=== PATIENT | male | born 1985 | race Caucasian/White ===

== ENCOUNTER 2017-07-25 01:44 | Emergency (ER) | payer BC, OTHER ==
[2017-07-25] MEDS ORDERED: Pantoprazole 40 MG Tab.CR PO STA (02:19)
--- NOTE | 2017-07-25 02:22 | EDM.PDOC ---
ED HPI GENERAL MEDICAL PROBLEM - General Chief Complaint: Gastrointestinal Problem Stated Complaint: SOB Time Seen by Provider: 07/25/17 01:44 Source of Information: Reports: Patient, Family History Limitations: Reports: No Limitations - History of Present Illness INITIAL COMMENTS - FREE TEXT/NARRATIVE: 31 y.o.w.m with metabolic syndrome, including DM, Morbid obesity and hypertension, came to the ed after he woke up after in joked on some vomited food. He stated he felt an acid taste in his mouth. The symptoms were lasting a sec or so. He is on HNT and DM meds (metformin) however, he does not take his meds since April. right now, he is in his usual state of health. BP 173/89 Pulse 102 RR 20 Pulse ox 98% on RA Temp 37.1 Onset Date: 07/25/17 Onset Time: 00:30 Duration: Hour(s):, Other (one time, subsided [employer]) Location: Reports: Chest Quality: Reports: Ache, Burning Severity: Moderate Improves with: Reports: Other (sitting up) Worsens with: Reports: Eating, Other (in supine position) Context: Reports: Other (eating a heavy meal before bedtime) Associated Symptoms: Reports: Shortness of Breath (for a few seconds) - Related Data Allergies Allergy/AdvReac Type Severity Reaction Status Date / Time cephalexin Allergy Rash Verified 07/25/17 01:55 egg Allergy Cannot Verified 07/25/17 01:55 Remember Home Meds: Home Meds Omeprazole 40 mg PO BEDTIME #30 cap.sr 07/25/17 [Rx] Past Medical History Cardiovascular History: Reports: Hypertension Respiratory History: Reports: Asthma Gastrointestinal History: Reports: GERD, Helicobacter Pylori Musculoskeletal History: Reports: Fracture Other Musculoskeletal History: hx fx hand, fx R foot, Endocrine/Metabolic History: Reports: Diabetes, Type II, Obesity/BMI 30+ - Infectious Disease History Infectious Disease History: Reports: Chicken Pox - Past Surgical History HEENT Surgical History: Reports: Adenoidectomy, Myringotomy w Tube(s), Oral Surgery, Tonsillectomy GI Surgical History: Reports: EGD Endocrine Surgical History: Reports: None Musculoskeletal Surgical History: Reports: None Social & Family History - Family History Family Medical History: Noncontributory - Tobacco Use Smoking Status *Q: Never Smoker - Caffeine Use Caffeine Use: Reports: Coffee, Soda - Recreational Drug Use Recreational Drug Use: No ED ROS GENERAL - Review of Systems Review Of Systems: See Below Constitutional: Reports: No Symptoms HEENT: Reports: No Symptoms Respiratory: Reports: No Symptoms Cardiovascular: Reports: No Symptoms Endocrine: Reports: No Symptoms GI/Abdominal: Reports: Other (gastric reflux) : Reports: No Symptoms Musculoskeletal: Reports: No Symptoms Skin: Reports: No Symptoms Neurological: Reports: No Symptoms Psychiatric: Reports: No Symptoms Hematologic/Lymphatic: Reports: No Symptoms Immunologic: Reports: No Symptoms ED EXAM, GI/ABD - Physical Exam Exam: See Below Exam Limited By: No Limitations General Appearance: Alert, WD/WN, Mild Distress Eyes: Bilateral: Normal Appearance, EOMI Ears: Normal External Exam Nose: Normal Inspection Throat/Mouth: Normal Inspection Head: Atraumatic, Normocephalic Neck: Normal Inspection, Supple, Non-Tender, Full Range of Motion Respiratory/Chest: No Respiratory Distress, Lungs Clear, Normal Breath Sounds, No Accessory Muscle Use, Chest Non-Tender Cardiovascular: Normal Peripheral Pulses, Regular Rate, Rhythm, No Edema, No Gallop GI/Abdominal Exam: Normal Bowel Sounds, Soft, Non-Tender, No Organomegaly, No Abnormal Bruit, No Mass (Male) Exam: Deferred Rectal (Males) Exam: Deferred Back Exam: Normal Inspection, Full Range of Motion Extremities: Normal Inspection, Normal Range of Motion, Non-Tender, No Pedal Edema, Normal Capillary Refill Neurological: Alert, Oriented, CN II-XII Intact, Normal Cognition, Normal Gait, Normal Reflexes, No Motor/Sensory Deficits Psychiatric: Normal Affect, Normal Mood Skin Exam: Warm, Dry, Intact, Normal Color, No Rash Lymphatic: No Adenopathy EKG INTERPRETATION EKG Date: 07/25/17 Time: 01:55 Rhythm: NSR Rate (Beats/Min): 99 [place]: Normal P-Wave: Present QRS: Normal ST-T: Normal QT: Normal Comparison: NA - No Prior EKG Course - Vital Signs Text/Narrative:: 31 y.o.w.m with metabolic syndrome, including DM, Morbid obesity and hypertension, came to the ed after he woke up after in joked on some vomited food. He stated he felt an acid taste in his mouth. The symptoms were lasting a sec or so. He is on HNT and DM meds (metformin) however, he does not take his meds since April. right now, he is in his usual state of health. BP 173/89 Pulse 102 RR 20 Pulse ox 98% on RA Temp 37.1 PE: Morbid obese 31 y.o.w.m presented with GERD symptoms Labs: Glc 483 (nonfasting) Na 132 K 3.7 Amylase 19 Impression: GERD, H/O NIDDM and HTN, Noncompliance with meds, metabolic syndrome Tx: Protonix, pt refused Metrormin/insulin SQ at this time, stating he has medications at home Reexam: Improved Plan: D/C with instructions Last Recorded V/S: Last Vital Signs Temp 36.7 C 07/25/17 01:44 Pulse 104 H 07/25/17 01:44 Resp 20 07/25/17 01:44 BP 173/99 H 07/25/17 01:44 Pulse Ox 96 07/25/17 01:44 - Orders/Labs/Meds Orders: Active Orders 24 hr Category Date Time Status EKG Documentation Completion [RC] ASDIRECTED Care 07/25/17 02:12 Active GLYCOSYLATED HEMOGLOBIN,HGBA1C [CHEM] Stat Lab 07/25/17 02:48 Ordered EKG 12 Lead [EK] Routine Ther 07/25/17 02:11 Ordered Labs: Laboratory Tests 07/25/17 07/25/17 Range/Units 02:05 02:05 WBC 10.1 (4.5-12.0) X10-3/uL RBC 5.58 (4.30-5.75) x10(6)uL Hgb 16.7 H (11.5-15.5) g/dL Hct 48.1 (30.0-51.3) % MCV 86.2 (80-96) fL MCH 29.9 (27.7-33.6) pg MCHC 34.6 (32.2-35.4) g/dL RDW 12.5 (11.5-15.5) % Plt Count 219 (125-369) X10(3)uL MPV 9.5 (7.4-10.4) fL Neut % (Auto) 67.2 (46-82) % Lymph % (Auto) 22.5 (13-37) % [place] % (Auto) 7.5 (4-12) % Eos % (Auto) 2 (1.0-5.0) % Baso % (Auto) 1 (0-2) % Neut # (Auto) 6.7 (1.6-8.3) # Lymph # (Auto) 2.3 (0.6-5.0) # [place] # (Auto) 0.8 (0.0-1.3) # Eos # (Auto) 0.2 (0.0-0.8) # Baso # (Auto) 0.1 (0.0-0.2) # Sodium 132 L (135-145) mmol/L Potassium 3.7 (3.5-5.3) mmol/L Chloride 97 L (100-110) mmol/L Carbon Dioxide 25 (21-32) mmol/L BUN 14 (7-18) mg/dL Creatinine 1.0 (0.70-1.30) mg/dL Est Cr Clr Drug Dosing 130.20 mL/min Estimated GFR (MDRD) > 60 (>60) BUN/Creatinine Ratio 14.0 (9-20) Glucose 483 H* (80-116) mg/dL Calcium 8.3 L (8.6-10.2) mg/dL Total Bilirubin 0.8 (0.1-1.3) mg/dL Direct Bilirubin < 0.05 L (0.10-0.20) mg/dL AST 16 (5-25) IU/L ALT 30 (12-36) U/L Alkaline Phosphatase 113 H (56-112) IU/L Total Protein 7.0 (6.0-8.0) g/dL Albumin 3.4 L (3.5-5.2) g/dL Amylase 19 L (25-115) U/L Meds: Medications Discontinued Medications Generic Name Dose Route Start Last Admin Trade Name Freq PRN Reason Stop Dose Admin Pantoprazole Sodium 40 mg 07/25/17 02:19 07/25/17 02:25 Protonix PO 07/25/17 02:20 40 mg ONETIME STA Administration Departure - Departure Time of Disposition: 02:52 Disposition: Home, Self-Care 01 Condition: Good Clinical Impression: Noncompliance with medication regimen, HTN (hypertension) GERD (gastroesophageal reflux disease) Qualifiers: Esophagitis presence: esophagitis presence not specified Qualified Code(s): K21.9 - Gastro-esophageal reflux disease without esophagitis Diabetes Qualifiers: Diabetes mellitus type: type 2 - Discharge Information Prescriptions: Omeprazole 40 mg PO BEDTIME #30 cap.sr Instructions: Heartburn, [id number], Pantoprazole tablets Referrals: Norm Toribio MD [Primary Care Provider] - Forms: ED Department Discharge Additional Instructions: Please do not eat anything 3 hours before bedtime, please elevate head 30 degree at night. Please take the Protonix as recommended & take Metformin when you get home. Please follow up in 1-3 days at clinic & have fasting blood sugar rechecked. Please come back if your symptoms get worse acutely. - My Orders Last 24 Hours: My Active Orders 07/25/17 02:11 EKG 12 Lead [EK] Routine 07/25/17 02:12 EKG Documentation Completion [RC] ASDIRECTED 07/25/17 02:48 GLYCOSYLATED HEMOGLOBIN,HGBA1C [CHEM] Stat - Assessment/Plan Last 24 Hours: My Active Orders 07/25/17 02:11 EKG 12 Lead [EK] Routine 07/25/17 02:12 EKG Documentation Completion [RC] ASDIRECTED 07/25/17 02:48 GLYCOSYLATED HEMOGLOBIN,HGBA1C [CHEM] Stat
== END 2017-07-25 02:58 | disposition home or self-care (01) ==
LOC: FB.ED 01:44
DX: K21.9 Gastro-esophageal reflux disease without esophagitis (principal); E11.9 Type 2 diabetes mellitus without complications; I10 Essential (primary) hypertension; Z91.14 Patient's other noncompliance with medication regimen; Z88.1 Allergy status to other antibiotic agents; Z91.012 Allergy to eggs
CPT/HCPCS: 36415; 80048; 80076; 82150; 83036; 85025; 93005; 99284; A9270

== ENCOUNTER 2021-04-04 20:28 | Inpatient (IN) | payer OTHER ==
--- NOTE | 2021-04-04 21:09 | EDM.PDOC ---
ED HPI GENERAL MEDICAL PROBLEM - General Chief Complaint: Lower Extremity Injury/Pain Stated Complaint: FOOT INFECTION Time Seen by Provider: 04/04/21 21:12 Source of Information: Reports: Patient - History of Present Illness INITIAL COMMENTS - FREE TEXT/NARRATIVE: 35-year-old gentleman with a past medical history significant for uncontrolled diabetes mellitus came to the emergency department due to pain and swelling in his right foot. He went to a walk-in clinic approximately 5 days ago and was seen due to some redness in the foot but no significant redness or swelling. He also had some pain behind his leg. Ultrasound was negative for DVT but he did have a small lymph node in his groin. He was not started on antibiotics at that time. However, over the last 2 to 3 days he has had increasing fatigue, fever, pain, and swelling in his foot. He denies chest pain, shortness of breath at this time. - Related Data Allergies Allergy/AdvReac Type Severity Reaction Status Date / Time cephalexin Allergy Rash Verified 04/04/21 20:44 egg Allergy Cannot Verified 04/04/21 20:44 Remember Home Meds: Home Meds Lisinopril/Hydrochlorothiazide [Lisinopril-Hctz 20-25 mg Tab] 1 each PO BEDTIME 04/04/21 [History] Semaglutide [Ozempic] 0.25 mg SQ KRAUS 04/04/21 [History] atorvaSTATin Calcium [Lipitor] 20 mg PO BEDTIME 04/04/21 [History] metFORMIN [Glucophage XR] 500 mg PO BIDMEALS 04/04/21 [History] Past Medical History Cardiovascular History: Reports: Hypertension Respiratory History: Reports: Asthma Gastrointestinal History: Reports: GERD, Helicobacter Pylori Musculoskeletal History: Reports: Fracture Other Musculoskeletal History: hx fx hand, fx R foot, Endocrine/Metabolic History: Reports: Diabetes, Type II, Obesity/BMI 30+ - Infectious Disease History Infectious Disease History: Reports: Chicken Pox - Past Surgical History HEENT Surgical History: Reports: Adenoidectomy, Myringotomy w Tube(s), Oral Surgery, Tonsillectomy GI Surgical History: Reports: EGD Endocrine Surgical History: Reports: None Musculoskeletal Surgical History: Reports: None Social & Family History - Family History Family Medical History: No Pertinent Family History - Caffeine Use Caffeine Use: Reports: Coffee, Soda Review of Systems - Review of Systems Review Of Systems: See Below Constitutional: Reports: Chills, Fever Eyes: Reports: No Symptoms Ears: Reports: No Symptoms Nose: Reports: No Symptoms Mouth/Throat: Reports: No Symptoms Respiratory: Reports: No Symptoms Cardiovascular: Reports: No Symptoms GI/Abdominal: Reports: No Symptoms Genitourinary: Reports: No Symptoms Musculoskeletal: Reports: Foot Pain Skin: Reports: Wound, Other (Significant swelling, erythema, edema with purulent discharge from a wound at the base of the medial aspect of the right great toe) Neurological: Reports: No Symptoms Psychiatric: Reports: No Symptoms ED EXAM, GENERAL - Physical Exam Exam: See Below Free Text/Narrative:: Note that patient's right foot is numb to touch from just inferior to the talus and distally Exam Limited By: No Limitations General Appearance: Alert, Anxious Eye Exam: Bilateral Eye: EOMI Head: Atraumatic, Normocephalic Neck: Normal Inspection Respiratory/Chest: No Respiratory Distress, Lungs Clear Cardiovascular: Regular Rate, Rhythm Peripheral Pulses: 2+: Radial (L), Radial (R), Posterior Tibial (R), Dorsalis Pedis (R) GI/Abdominal: Normal Bowel Sounds, Non-Tender Back Exam: Normal Inspection Extremities: Pedal Edema Neurological: Alert, Oriented, Normal Cognition Psychiatric: Anxious Skin Exam: Other (Significant swelling, erythema, edema, calor, wound with purulent discharge at the base of the medial aspect of the right great toe) Course - Vital Signs Text/Narrative:: Review of the patient's [facility] chart shows that he has had Augmentin in the past without adverse effect. He also shows that he had chronic kidney disease with a creatinine of 1.35 and GFR of 60 on 03/25/2021. His previous A1c was 9.8 on 03/25/2021 and prior to that it was 11.3 on 10/04/2018. Patient started on Zosyn and vancomycin. I attempted transfer to both [facility]/[place] transfer line and to [facility]. They will call in the morning if beds are available. Last Recorded V/S: Last Vital Signs Temp 37.1 C 04/04/21 20:37 Pulse 118 H 04/04/21 20:37 Resp 20 04/04/21 20:37 BP 124/91 H 04/04/21 20:37 Pulse Ox 99 04/04/21 20:37 - Orders/Labs/Meds Orders: Active Orders 24 hr Category Date Time Status Patient Status Manage Transfer [TRANSFER] Routine ADT 04/04/21 23:28 Active Patient Status [ADT] Routine ADT 04/04/21 23:29 Active Accu Check [Blood Glucose Check, Bedside] [RC] Care 04/04/21 23:35 Ordered WITHMEALSANDBED Antiembolic Devices [RC] .Routine Care 04/04/21 23:31 Active Pulse Oximetry [RC] PRN Care 04/04/21 23:29 Active VTE/DVT Education [RC] Click to Edit Care 04/04/21 23:31 Active Vital Signs [RC] Q4H Care 04/04/21 23:29 Active Consistent Carbohydrate Diet [DIET] Diet 04/05/21 Breakfast Ordered CULTURE BLOOD [BC] Urgent Lab 04/04/21 21:07 Received CULTURE BLOOD [BC] Urgent Lab 04/04/21 21:12 Received CULTURE ROUTINE + SMEAR [RM] Stat Lab 04/04/21 20:55 Received Piperacillin/Tazobactam [Zosyn] 3.375 gm Med 04/04/21 22:00 Active Sodium Chloride 0.9% [Normal Saline AdvBag] 50 ml IV Q6H Sodium Chloride 0.9% [Normal Saline] 1,000 ml Med 04/04/21 23:00 Active IV ASDIRECTED VANCOmycin 2 GM/400 ML 2 gm Med 04/04/21 22:30 Active Premix Bag 1 bag IV STAT Vancomycin Med 04/04/21 23:00 Hold 3 gm IV .PHARMACY TO DOSE Blood Culture x2 Reflex Set [OM.PC] Urgent Oth 04/04/21 21:02 Ordered DVT/VTE Prophylaxis Reflex [OM.PC] Per Unit Routine Oth 04/04/21 23:29 Ordered Resuscitation Status Routine Resus Stat 04/04/21 23:29 Ordered Medication Orders Piperacillin Sod/Tazobactam (Sod 3.375 gm/ Sodium Chloride) 50 mls @ 100 mls/hr IV Q6H [facility] Last Admin: 04/04/21 22:04 Dose: 100 mls/hr Documented by: CHARLES Vancomycin HCl 2 gm/ Premix 400 mls @ 200 mls/hr IV STAT ONE Stop: 04/05/21 00:29 Last Admin: 04/04/21 22:43 Dose: 200 mls/hr Documented by: CHARLES Sodium Chloride (Normal Saline) 1,000 mls @ 150 mls/hr IV ASDIRECTED [facility] Vancomycin HCl (Vancomycin 1 Gm Sdv) 3 gm IV .PHARMACY TO DOSE [facility] Labs: Laboratory Tests 04/04/21 04/04/21 04/04/21 Range/Units 21:07 21:07 21:07 WBC 13.5 H (3.2-10.1) x10-3/uL RBC 4.94 (3.90-5.90) x10(6)uL Hgb 14.6 (12.9-17.7) g/dL Hct 42.3 (38.3-50.1) % MCV 85.5 (80.8-98.7) fL MCH 29.5 (27.0-33.3) pg MCHC 34.5 (28.7-35.3) g/dL RDW 13.2 (12.4-15.0) % Plt Count 281 (117-477) x10(3)uL MPV 8.9 (6.7-11.0) fL Neut % (Auto) 66.6 (40.3-71.8) % Lymph % (Auto) 19.4 (15.8-45.3) % [place] % (Auto) 11.1 (5.5-15.2) % Eos % (Auto) 2.2 (0.1-6.8) % Baso % (Auto) 0.7 (0.3-3.8) % Neut # (Auto) 9.0 H (1.7-6.9) x10-3/uL Lymph # (Auto) 2.6 (0.5-4.5) x10-3/uL [place] # (Auto) 1.5 H (0.0-1.2) x10-3/uL Eos # (Auto) 0.3 (0.0-0.6) x10-3/uL Baso # (Auto) 0.1 (0.0-0.3) x10-3/uL Sodium 134 L (135-145) mmol/L Potassium 3.8 (3.5-5.3) mmol/L Chloride 99 L (100-110) mmol/L Carbon Dioxide 27 (21-32) mmol/L BUN 26 H D (7-18) mg/dL Creatinine 1.6 H (0.70-1.30) mg/dL Est Cr Clr Drug Dosing 78.36 mL/min Estimated GFR (MDRD) 49 L (>60) BUN/Creatinine Ratio 16.3 (9-20) Glucose 210 H D (80-116) mg/dL Lactic Acid 1.4 (0.4-2.0) mmol/L Calcium 9.5 (8.6-10.2) mg/dL Total Bilirubin 0.8 (0.1-1.3) mg/dL AST 17 (5-25) IU/L ALT 19 D (12-36) U/L Alkaline Phosphatase 85 (56-112) IU/L Total Protein 7.8 (6.0-8.0) g/dL Albumin 2.9 L (3.5-5.2) g/dL Globulin 4.9 g/dL Albumin/Globulin Ratio 0.6 Meds: Medications Generic Name Dose Route Start Last Admin Trade Name Freq PRN Reason Stop Dose Admin Piperacillin Sod/Tazobactam 50 mls @ 100 mls/hr 04/04/21 22:00 04/04/21 22:04 Sod 3.375 gm/ Sodium Chloride IV 100 mls/hr Q6H MAX Administration Vancomycin HCl 2 gm/ Premix 400 mls @ 200 mls/hr 04/04/21 22:30 04/04/21 22:43 IV 04/05/21 00:29 200 mls/hr STAT ONE Administration Sodium Chloride 1,000 mls @ 150 mls/hr 04/04/21 23:00 Normal Saline IV ASDIRECTED [facility] Vancomycin HCl 3 gm 04/04/21 23:00 Vancomycin 1 Gm Sdv IV .PHARMACY TO DOSE MAX Departure - Departure Time of Disposition: 23:37 Disposition: Refer to Observation Condition: Fair Clinical Impression: Cellulitis and abscess of right lower extremity Diabetes mellitus Qualifiers: Diabetes mellitus type: type 2 - Discharge Information *PRESCRIPTION DRUG MONITORING PROGRAM REVIEWED*: Not Applicable *COPY OF PRESCRIPTION DRUG MONITORING REPORT IN PATIENT LISA: Not Applicable Referrals: PCP,None [Primary Care Provider] - Forms: ED Department Discharge Sepsis Event Note (ED) - Evaluation Sepsis Screening Result: No Definite Risk - Focused Exam Vital Signs: Vital Signs Temp Pulse Resp BP Pulse Ox 04/04/21 20:37 37.1 C 118 H 20 124/91 H 99 - My Orders Last 24 Hours: My Active Orders 04/04/21 20:55 CULTURE ROUTINE + SMEAR [RM] Stat 04/04/21 21:02 Blood Culture x2 Reflex Set [OM.PC] Urgent 04/04/21 21:07 CULTURE BLOOD [BC] Urgent 04/04/21 21:12 CULTURE BLOOD [BC] Urgent 04/04/21 22:00 Piperacillin/Tazobactam [Zosyn] 3.375 gm Sodium Chloride 0.9% [Normal Saline AdvBag] 50 ml IV Q6H 04/04/21 22:30 VANCOmycin 2 GM/400 ML 2 gm Premix Bag 1 bag IV STAT 04/04/21 23:00 Sodium Chloride 0.9% [Normal Saline] 1,000 ml IV ASDIRECTED Vancomycin 3 gm IV .PHARMACY TO DOSE 04/04/21 23:28 Patient Status Manage Transfer [TRANSFER] Routine 04/04/21 23:29 Patient Status [ADT] Routine Pulse Oximetry [RC] PRN Vital Signs [RC] Q4H DVT/VTE Prophylaxis Reflex [OM.PC] Per Unit Routine Resuscitation Status Routine 04/04/21 23:31 Antiembolic Devices [RC] .Routine VTE/DVT Education [RC] Click to Edit 04/04/21 23:35 Accu Check [Blood Glucose Check, Bedside] [RC] WITHMEALSANDBED 04/05/21 Breakfast Consistent Carbohydrate Diet [DIET] - Assessment/Plan Last 24 Hours: My Active Orders 04/04/21 20:55 CULTURE ROUTINE + SMEAR [RM] Stat 04/04/21 21:02 Blood Culture x2 Reflex Set [OM.PC] Urgent 04/04/21 21:07 CULTURE BLOOD [BC] Urgent 04/04/21 21:12 CULTURE BLOOD [BC] Urgent 04/04/21 22:00 Piperacillin/Tazobactam [Zosyn] 3.375 gm Sodium Chloride 0.9% [Normal Saline AdvBag] 50 ml IV Q6H 04/04/21 22:30 VANCOmycin 2 GM/400 ML 2 gm Premix Bag 1 bag IV STAT 04/04/21 23:00 Sodium Chloride 0.9% [Normal Saline] 1,000 ml IV ASDIRECTED Vancomycin 3 gm IV .PHARMACY TO DOSE 04/04/21 23:28 Patient Status Manage Transfer [TRANSFER] Routine 04/04/21 23:29 Patient Status [ADT] Routine Pulse Oximetry [RC] PRN Vital Signs [RC] Q4H DVT/VTE Prophylaxis Reflex [OM.PC] Per Unit Routine Resuscitation Status Routine 04/04/21 23:31 Antiembolic Devices [RC] .Routine VTE/DVT Education [RC] Click to Edit 04/04/21 23:35 Accu Check [Blood Glucose Check, Bedside] [RC] WITHMEALSANDBED 04/05/21 Breakfast Consistent Carbohydrate Diet [DIET]
[2021-04-04] MEDS: Sodium Chloride 0.9% 1,000 ML IV SCH (22:04)
[2021-04-04] MEDS: Piperacillin/Tazobactam 3.375 GM in Sodium Chloride 0.9% 50 ML IV SCH (22:04)
[2021-04-04] MEDS ORDERED: VANCOmycin 2 GM/400 ML 2 GM in Premix Bag 1 BAG IV ONE (22:30)
[2021-04-04] MEDS ORDERED: Vancomycin 1 GM SDV IV SCH (23:00)
[2021-04-05] MEDS: Piperacillin/Tazobactam 3.375 GM in Sodium Chloride 0.9% 50 ML IV SCH ×4 (04:54→23:44)
[2021-04-05] MEDS ORDERED: metFORMIN 500 MG Tab PO SCH (08:00)
[2021-04-05] MEDS: Sodium Chloride 0.9% 1,000 ML IV SCH (08:40)
--- NOTE | 2021-04-05 09:10 | PCM.HP.2 ---
H&P History of Present Illness - General Date of Service: 04/05/21 Admit Problem/Dx: Admission Diagnosis/Problem Admission Diagnosis/Problem Cellulitis and abscess of foot Source of Information: Patient History Limitations: Reports: No Limitations - History of Present Illness Initial Comments - Free Text/Narative: 35-year-old male patient with uncontrolled diabetes that came to the ER because of the foot infection. He was seen over a week ago with a left toe infection and put on antibiotics at the walk-in clinic. And then he stepped on a piece of metal couple days ago on the right foot and then also he said it was a blister he went to work yesterday and then came to the ER. Having some chills, fevers and some body aches. He does have little cough but he thinks is from the lisinopril that was recently started. He says for 10 years he has not really been controlling his diabetes and was on Metformin and went off because it caused stomach upset and diarrhea. He was placed on half a dose of what he was on before and is working he was recently placed on Ozempic. Is on Lipitor and lisinopril hydrochlorothiazide for hypertension. The ER doctor called [facility] and they were not able to take him last night. - Related Data Allergies/Adverse Reactions: Allergies Allergy/AdvReac Type Severity Reaction Status Date / Time cephalexin Allergy Rash Verified 04/04/21 20:44 egg Allergy Cannot Verified 04/04/21 20:44 Remember Home Medications: Home Meds Lisinopril/Hydrochlorothiazide [Lisinopril-Hctz 20-25 mg Tab] 1 each PO BEDTIME 04/04/21 [History] Semaglutide [Ozempic] 0.25 mg SQ KRAUS 04/04/21 [History] atorvaSTATin Calcium [Lipitor] 20 mg PO BEDTIME 04/04/21 [History] metFORMIN [Glucophage] 500 mg PO BIDMEALS 04/05/21 [History] Past Medical History Cardiovascular History: Reports: High Cholesterol, Hypertension Respiratory History: Reports: Asthma Gastrointestinal History: Reports: GERD, Helicobacter Pylori Musculoskeletal History: Reports: Fracture Other Musculoskeletal History: hx fx hand, fx R foot, Endocrine/Metabolic History: Reports: Diabetes, Type II, Obesity/BMI 30+ - Infectious Disease History Infectious Disease History: Reports: Chicken Pox, Novel Coronavirus - Past Surgical History HEENT Surgical History: Reports: Adenoidectomy, Myringotomy w Tube(s), Oral Surgery, Tonsillectomy GI Surgical History: Reports: EGD Endocrine Surgical History: Reports: None Musculoskeletal Surgical History: Reports: None Social & Family History - Family History Family Medical History: No Pertinent Family History - Tobacco Use Tobacco Use Status *Q: Never Tobacco User Years of Tobacco use: 10 Packs/Tins Daily: 0.1 Second Hand Smoke Exposure: No - Caffeine Use Caffeine Use: Reports: Soda Other Caffeine Use: 2-3/day - Recreational Drug Use Recreational Drug Use: No H&P Review of Systems - Review of Systems: Review Of Systems: See Below General: Reports: Fever, Chills HEENT: Reports: No Symptoms Pulmonary: Reports: Cough Cardiovascular: Reports: No Symptoms Gastrointestinal: Reports: No Symptoms Genitourinary: Reports: No Symptoms Musculoskeletal: Reports: No Symptoms Skin: Reports: Wound Psychiatric: Reports: No Symptoms Neurological: Reports: Paresthesia (Bilateral feet) Hematologic/Lymphatic: Reports: No Symptoms Immunologic: Reports: No Symptoms Exam - Exam Exam: See Below - Vital Signs Vital Signs: Last Vital Signs Temp 98.2 F 04/05/21 04:00 Pulse 97 04/05/21 04:00 Resp 14 04/05/21 04:00 BP 112/61 04/05/21 04:00 Pulse Ox 96 04/05/21 04:00 Weight: 305 lb 7 oz - Exam General: Alert, Oriented, Cooperative HEENT: Mucosa Moist & [place], Posterior Pharynx Clear, TMs Clear Neck: Supple, Trachea Midline Lungs: Clear to Auscultation, Normal Respiratory Effort Cardiovascular: Regular Rate, Regular Rhythm, Normal S1, Normal S2. No: Systolic Murmur GI/Abdominal Exam: Normal Bowel Sounds, Soft, Non-Tender, No Distention Extremities: No Pedal Edema, Other (Left toe has some mild erythema. Right toe has what looks like pus pocket under the great toe with erythema.) Skin: Rash, Other (See under extremity) Neuro Extensive - Mental Status: Alert, Oriented x3, Normal Mood/Affect, Normal Cognition, Memory Intact Psychiatric: Alert, Normal Affect, Normal Mood - Patient Data Lab Results Last 24 hrs: Laboratory Results - last 24 hr 04/04/21 04/04/21 04/04/21 Range/Units 21:07 21:07 21:07 WBC 13.5 H (3.2-10.1) x10-3/uL RBC 4.94 (3.90-5.90) x10(6)uL Hgb 14.6 (12.9-17.7) g/dL Hct 42.3 (38.3-50.1) % MCV 85.5 (80.8-98.7) fL MCH 29.5 (27.0-33.3) pg MCHC 34.5 (28.7-35.3) g/dL RDW 13.2 (12.4-15.0) % Plt Count 281 (117-477) x10(3)uL MPV 8.9 (6.7-11.0) fL Neut % (Auto) 66.6 (40.3-71.8) % Lymph % (Auto) 19.4 (15.8-45.3) % [place] % (Auto) 11.1 (5.5-15.2) % Eos % (Auto) 2.2 (0.1-6.8) % Baso % (Auto) 0.7 (0.3-3.8) % Neut # (Auto) 9.0 H (1.7-6.9) x10-3/uL Lymph # (Auto) 2.6 (0.5-4.5) x10-3/uL [place] # (Auto) 1.5 H (0.0-1.2) x10-3/uL Eos # (Auto) 0.3 (0.0-0.6) x10-3/uL Baso # (Auto) 0.1 (0.0-0.3) x10-3/uL Sodium 134 L (135-145) mmol/L Potassium 3.8 (3.5-5.3) mmol/L Chloride 99 L (100-110) mmol/L Carbon Dioxide 27 (21-32) mmol/L BUN 26 H D (7-18) mg/dL Creatinine 1.6 H (0.70-1.30) mg/dL Est Cr Clr Drug Dosing 78.36 mL/min Estimated GFR (MDRD) 49 L (>60) BUN/Creatinine Ratio 16.3 (9-20) Glucose 210 H D (80-116) mg/dL POC Glucose (80-116) mg/dL Lactic Acid 1.4 (0.4-2.0) mmol/L Calcium 9.5 (8.6-10.2) mg/dL Total Bilirubin 0.8 (0.1-1.3) mg/dL AST 17 (5-25) IU/L ALT 19 D (12-36) U/L Alkaline Phosphatase 85 (56-112) IU/L Total Protein 7.8 (6.0-8.0) g/dL Albumin 2.9 L (3.5-5.2) g/dL Globulin 4.9 g/dL Albumin/Globulin Ratio 0.6 04/05/21 Range/Units 07:49 WBC (3.2-10.1) x10-3/uL RBC (3.90-5.90) x10(6)uL Hgb (12.9-17.7) g/dL Hct (38.3-50.1) % MCV (80.8-98.7) fL MCH (27.0-33.3) pg MCHC (28.7-35.3) g/dL RDW (12.4-15.0) % Plt Count (117-477) x10(3)uL MPV (6.7-11.0) fL Neut % (Auto) (40.3-71.8) % Lymph % (Auto) (15.8-45.3) % [place] % (Auto) (5.5-15.2) % Eos % (Auto) (0.1-6.8) % Baso % (Auto) (0.3-3.8) % Neut # (Auto) (1.7-6.9) x10-3/uL Lymph # (Auto) (0.5-4.5) x10-3/uL [place] # (Auto) (0.0-1.2) x10-3/uL Eos # (Auto) (0.0-0.6) x10-3/uL Baso # (Auto) (0.0-0.3) x10-3/uL Sodium (135-145) mmol/L Potassium (3.5-5.3) mmol/L Chloride (100-110) mmol/L Carbon Dioxide (21-32) mmol/L BUN (7-18) mg/dL Creatinine (0.70-1.30) mg/dL Est Cr Clr Drug Dosing mL/min Estimated GFR (MDRD) (>60) BUN/Creatinine Ratio (9-20) Glucose (80-116) mg/dL POC Glucose 163 H (80-116) mg/dL Lactic Acid (0.4-2.0) mmol/L Calcium (8.6-10.2) mg/dL Total Bilirubin (0.1-1.3) mg/dL AST (5-25) IU/L ALT (12-36) U/L Alkaline Phosphatase (56-112) IU/L Total Protein (6.0-8.0) g/dL Albumin (3.5-5.2) g/dL Globulin g/dL Albumin/Globulin Ratio Result Diagrams: 04/04/21 21:07 04/04/21 21:07 Sepsis Event Note - Evaluation Sepsis Screening Result: Sepsis Risk - Focused Exam Vital Signs: Vital Signs Temp Temp Pulse Resp BP Pulse Ox 04/05/21 04:00 98.2 F 97 14 112/61 96 04/05/21 00:45 96 04/05/21 00:30 99.0 F 100 16 155/96 H 96 04/05/21 00:00 99.2 F 108 H 18 128/80 98 - Problem List (1) Cellulitis and abscess of right lower extremity SNOMED Code(s): 752496419 ICD Code: L03.115 - CELLULITIS OF RIGHT LOWER LIMB; L02.415 - CUTANEOUS ABSCESS OF RIGHT LOWER LIMB Status: Acute Current Visit: Yes (2) Diabetes SNOMED Code(s): 29171243 ICD Code: E11.9 - TYPE 2 DIABETES MELLITUS WITHOUT COMPLICATIONS Status: Acute Current Visit: Yes Qualifiers: Diabetes mellitus type: type 2 (3) GERD (gastroesophageal reflux disease) SNOMED Code(s): 370019171 ICD Code: K21.9 - GASTRO-ESOPHAGEAL REFLUX DISEASE WITHOUT ESOPHAGITIS Status: Acute Current Visit: No Qualifiers: Esophagitis presence: esophagitis presence not specified Qualified Code(s): K21.9 - Gastro-esophageal reflux disease without esophagitis (4) HTN (hypertension) SNOMED Code(s): 70986401 ICD Code: I10 - ESSENTIAL (PRIMARY) HYPERTENSION Status: Acute Current Visit: No (5) Noncompliance with medication regimen SNOMED Code(s): 775358698 ICD Code: Z91.14 - PATIENT'S OTHER NONCOMPLIANCE WITH MEDICATION REGIMEN Status: Acute Current Visit: No Problem List Initiated/Reviewed/Updated: Yes Orders Last 24hrs: Active Orders 24 hr Category Date Time Status Admission Status [Patient Status] [ADT] Routine ADT 04/05/21 06:51 Active Patient Status [ADT] Routine ADT 04/04/21 23:29 Active Accu Check [Blood Glucose Check, Bedside] [RC] Care 04/04/21 23:35 Active WITHMEALSANDBED Antiembolic Devices [RC] .Routine Care 04/04/21 23:31 Active Notify Provider Consults [RC] ASDIRECTED Care 04/04/21 23:44 Active Pulse Oximetry [RC] PRN Care 04/04/21 23:29 Active VTE/DVT Education [RC] Click to Edit Care 04/04/21 23:31 Active Vital Signs [RC] 00,04,08,12,16,20 Care 04/04/21 23:29 Active Consistent Carbohydrate Diet [DIET] Diet 04/05/21 Breakfast Ordered CULTURE BLOOD [BC] Urgent Lab 04/04/21 21:07 Received CULTURE BLOOD [BC] Urgent Lab 04/04/21 21:12 Received CULTURE ROUTINE + SMEAR [RM] Stat Lab 04/04/21 20:55 Received VANCOMYCIN TROUGH [CHEM] Timed Lab 04/06/21 08:30 Ordered Pharmacy to Dose - Vancomycin Med 04/05/21 09:00 Pending 0 dose .XX DAILY Piperacillin/Tazobactam [Zosyn] 3.375 gm Med 04/05/21 10:00 Active Sodium Chloride 0.9% [Normal Saline AdvBag] 50 ml IV Q6H Semaglutide [Ozempic] Med 04/10/21 23:34 Pending 0.25 mg SQ KRAUS Sodium Chloride 0.9% [Normal Saline] 1,000 ml Med 04/04/21 23:00 Active IV ASDIRECTED VANCOmycin 2 GM/400 ML 2 gm Med 04/05/21 09:00 Active Premix Bag 1 bag IV Q12H atorvaSTATin [Lipitor] Med 04/05/21 21:00 Active 20 mg PO BEDTIME hydroCHLOROthiazide Med 04/05/21 21:00 Active 25 mg PO BEDTIME lisinopriL [Prinivil] Med 04/05/21 21:00 Active 20 mg PO BEDTIME metFORMIN [Glucophage] Med 04/05/21 08:00 Active 500 mg PO BIDMEALS Blood Culture x2 Reflex Set [OM.PC] Urgent Oth 04/04/21 21:02 Ordered DVT/VTE Prophylaxis Reflex [OM.PC] Per Unit Routine Oth 04/04/21 23:29 Ordered Resuscitation Status Routine Resus Stat 04/04/21 23:29 Ordered Medication Orders Atorvastatin Calcium (Atorvastatin 20 Mg Tab) 20 mg PO BEDTIME MAX Hydrochlorothiazide (Hydrochlorothiazide 25 Mg Tab) 25 mg PO BEDTIME MAX Sodium Chloride (Normal Saline) 1,000 mls @ 150 mls/hr IV ASDIRECTED [facility] Last Admin: 04/05/21 08:40 Dose: 150 mls/hr Documented by: Infusion: 04/05/21 04:45 Dose: 150 mls/hr Documented by: Admin: 04/04/21 22:04 Dose: 150 mls/hr Documented by: CHARLES Vancomycin HCl 2 gm/ Premix 400 mls @ 200 mls/hr IV Q12H MAX Piperacillin Sod/Tazobactam (Sod 3.375 gm/ Sodium Chloride) 50 mls @ 100 mls/hr IV Q6H MAX Lisinopril (Lisinopril 20 Mg Tab) 20 mg PO BEDTIME MAX Metformin HCl (Metformin 500 Mg Tab) 500 mg PO BIDMEALS [facility] Last Admin: 04/05/21 08:55 Dose: 500 mg Documented by: RADHA Non-Formulary Medication (Semaglutide [Ozempic]) 0.25 mg SQ KRAUS MAX Vancomycin HCl (Pharmacy To Dose - Vancomycin) 0 dose .XX DAILY [facility] Assessment/Plan Comment:: 1. Admit to observation with IV antibiotics. 2. Full code. 3. Diabetic diet. 4. Continue his medications but hold Metformin. 5. IV fluids and see if his kidneys improve. 6. Repeat labs in the a.m. 7. Dr. Murry been consulted will review his foot to see if he can do an I&D. 8. Consider doing an MRI or x-ray to rule out osteomyelitis. I wait till after the surgery consult. 9. Accu-Cheks 4 times daily. Watch to see if he needs a sliding scale. - Mortality Measure Prognosis:: Good
[2021-04-05] MEDS: VANCOmycin 2 GM/400 ML 2 GM in Premix Bag 1 BAG IV SCH ×2 (09:28→21:19)
[2021-04-05] MEDS ORDERED: Piperacillin/Tazobactam 3.375 GM in Sodium Chloride 0.9% 50 ML IV SCH (10:00)
--- NOTE | 2021-04-05 13:26 | CONS ---
DATE OF CONSULTATION: 04/05/2021 HISTORY: This patient is seen in consultation from Dr. Chinchilla for evaluation of right diabetic foot infection. For the past week, the patient has noticed some swelling and redness, and 2 days ago, he had a blister that spontaneously drained some yellowish particulate matter. Since that time, he has continued to have worsening swelling around the MP joint, mid toe and medial foot region. He presented to the emergency room earlier this morning and was admitted for IV antibiotics. He does have diabetes that is not well-controlled. He had a less severe infection on his left foot the other week that did respond to oral antibiotics and is not causing problems at this time. PHYSICAL EXAMINATION: EXTREMITIES: He does have an obvious right foot infection with a superficial opening over the first metatarsal medially. I am unable to express any drainage from this. I cannot tell if this is involving the joint or bone. I do not feel any obvious abscess remaining. ASSESSMENT: Right diabetic foot infection. PLAN: Findings were reviewed with Dr. Chinchilla and I discussed with Dr. Chinchilla and feel imaging needs to be done. I spoke with Dr. Hodge and he feels that MRI would be the best route and this will be scheduled for this afternoon. /[id number] DIANA/CATHERINE
[2021-04-05] MEDS ORDERED: Gadoteridol 279.3 MG/ML 20 ML SDV IV ONE (15:02)
--- NOTE | 2021-04-05 15:12 | CR ---
ORBITS FOREIGN BODY FOR MRI INDICATION: Question osteomyelitis, abscess right foot, need MRI. FINDINGS: Single frontal view of the orbits revealed no evidence of radiopaque foreign bodies - no metallic foreign bodies were identified. MTDD
[2021-04-05] MEDS ORDERED: Lisinopril 20 MG Tab PO SCH (21:00)
[2021-04-05] MEDS ORDERED: Hydrochlorothiazide 25 MG Tab PO SCH (21:00)
[2021-04-05] MEDS: atorvaSTATin 20 MG Tab PO SCH (21:16)
[2021-04-06] MEDS: Piperacillin/Tazobactam 3.375 GM in Sodium Chloride 0.9% 50 ML IV SCH ×4 (06:47→23:00)
--- NOTE | 2021-04-06 08:30 | PCM.PN ---
- General Info Date of Service: 04/06/21 Subjective Update: Patient states he does not have any fevers or chills. Still has some foot pain no drainage from the foot. - Patient Data Vitals - Most Recent: Last Vital Signs Temp 97.2 F 04/06/21 04:00 Pulse 91 04/06/21 04:00 Resp 16 04/06/21 04:00 BP 151/96 H 04/06/21 04:00 Pulse Ox 96 04/06/21 04:00 Weight - Most Recent: 305 lb 7 oz Lab Results Last 24 Hours: Laboratory Results - last 24 hr 04/05/21 04/05/21 04/05/21 Range/Units 11:28 17:36 21:06 POC Glucose 174 H 137 H 190 H (80-116) mg/dL 04/06/21 Range/Units 06:21 POC Glucose 147 H (80-116) mg/dL Jens Results Last 24 Hours: Microbiology 04/04/21 21:07 Aerobic Blood Culture - Preliminary Blood - Venous NO GROWTH AFTER 1 DAY Anaerobic Blood Culture - Preliminary NO GROWTH AFTER 1 DAY 04/04/21 21:12 Aerobic Blood Culture - Preliminary Blood - Venous - Lab Draw NO GROWTH AFTER 1 DAY Anaerobic Blood Culture - Preliminary NO GROWTH AFTER 1 DAY Med Orders - Current: Current Medications Atorvastatin Calcium (Atorvastatin 20 Mg Tab) 20 mg PO BEDTIME [facility] Last Admin: 04/05/21 21:16 Dose: 20 mg Documented by: Hydrochlorothiazide (Hydrochlorothiazide 25 Mg Tab) 25 mg PO BEDTIME [facility] Last Admin: 04/05/21 21:12 Dose: 25 mg Documented by: Vancomycin HCl 2 gm/ Premix 400 mls @ 200 mls/hr IV Q12H [facility] Last Admin: 04/05/21 21:19 Dose: 200 mls/hr Documented by: Piperacillin Sod/Tazobactam (Sod 3.375 gm/ Sodium Chloride) 50 mls @ 100 mls/hr IV Q6H [facility] Last Admin: 04/06/21 06:47 Dose: 100 mls/hr Documented by: Lisinopril (Lisinopril 20 Mg Tab) 20 mg PO BEDTIME [facility] Last Admin: 04/05/21 21:13 Dose: 20 mg Documented by: Non-Formulary Medication (Semaglutide [Ozempic]) 0.25 mg SQ KRAUS [facility] Vancomycin HCl (Pharmacy To Dose - Vancomycin) 0 dose .XX DAILY [facility] Discontinued Medications Gadoteridol (Gadoteridol 279.3 Mg/Ml 20 Ml Sdv) 20 ml IV . DIRECTED ONE Stop: 04/05/21 15:03 Last Admin: 04/05/21 15:23 Dose: 20 ml Documented by: Piperacillin Sod/Tazobactam (Sod 3.375 gm/ Sodium Chloride) 50 mls @ 100 mls/hr IV Q6H [facility] Last Admin: 04/05/21 04:54 Dose: 100 mls/hr Documented by: Vancomycin HCl 2 gm/ Premix 400 mls @ 200 mls/hr IV STAT ONE Stop: 04/05/21 00:29 Last Admin: 04/04/21 22:43 Dose: 200 mls/hr Documented by: Sodium Chloride (Normal Saline) 1,000 mls @ 150 mls/hr IV ASDIRECTED [facility] Last Admin: 04/05/21 08:40 Dose: 150 mls/hr Documented by: Piperacillin Sod/Tazobactam (Sod 3.375 gm/ Sodium Chloride) 50 mls @ 100 mls/hr IV Q6H [facility] Last Admin: 04/05/21 13:04 Dose: Not Given Documented by: Metformin HCl (Metformin 500 Mg Tab) 500 mg PO BIDMEALS [facility] Last Admin: 04/05/21 08:55 Dose: 500 mg Documented by: - Exam General: Alert, Oriented, Cooperative Skin: Other (Erythema medial right foot appears to be a little improved.) - Patient Data Lab Results Last 24 hrs: Laboratory Results - last 24 hr 04/05/21 04/05/21 04/05/21 Range/Units 11:28 17:36 21:06 POC Glucose 174 H 137 H 190 H (80-116) mg/dL 04/06/21 Range/Units 06:21 POC Glucose 147 H (80-116) mg/dL Result Diagrams: 04/04/21 21:07 04/04/21 21:07 Jens Results Last 24 hrs: Microbiology 04/04/21 21:07 Aerobic Blood Culture - Preliminary Blood - Venous NO GROWTH AFTER 1 DAY Anaerobic Blood Culture - Preliminary NO GROWTH AFTER 1 DAY 04/04/21 21:12 Aerobic Blood Culture - Preliminary Blood - Venous - Lab Draw NO GROWTH AFTER 1 DAY Anaerobic Blood Culture - Preliminary NO GROWTH AFTER 1 DAY Sepsis Event Note - Evaluation Sepsis Screening Result: No Definite Risk - Focused Exam Vital Signs: Vital Signs Temp Pulse Resp BP BP Pulse Ox 04/06/21 04:00 97.2 F 91 16 151/96 H 96 04/06/21 00:00 98.2 F 96 18 156/92 H 96 04/05/21 21:13 164/92 H - Problem List & Annotations (1) Cellulitis and abscess of right lower extremity SNOMED Code(s): 755678519 Code(s): L03.115 - CELLULITIS OF RIGHT LOWER LIMB; L02.415 - CUTANEOUS ABSCESS OF RIGHT LOWER LIMB Status: Acute Current Visit: Yes (2) Diabetes SNOMED Code(s): 32344063 Code(s): E11.9 - TYPE 2 DIABETES MELLITUS WITHOUT COMPLICATIONS Status: Acute Current Visit: Yes Qualifiers: Diabetes mellitus type: type 2 (3) GERD (gastroesophageal reflux disease) SNOMED Code(s): 516595520 Code(s): K21.9 - GASTRO-ESOPHAGEAL REFLUX DISEASE WITHOUT ESOPHAGITIS Status: Acute Current Visit: No Qualifiers: Esophagitis presence: esophagitis presence not specified Qualified Code(s): K21.9 - Gastro-esophageal reflux disease without esophagitis (4) HTN (hypertension) SNOMED Code(s): 32753361 Code(s): I10 - ESSENTIAL (PRIMARY) HYPERTENSION Status: Acute Current Visit: No (5) Noncompliance with medication regimen SNOMED Code(s): 192707901 Code(s): Z91.14 - PATIENT'S OTHER NONCOMPLIANCE WITH MEDICATION REGIMEN Status: Acute Current Visit: No - Problem List Review Problem List Initiated/Reviewed/Updated: Yes - My Orders Last 24 Hours: My Active Orders 04/05/21 10:45 Notify Provider Consults [RC] ASDIRECTED 04/05/21 19:27 Convert IV to Saline Lock [OM.PC] Routine 04/06/21 05:11 CBC WITH AUTO DIFF [HEME] AM 04/06/21 06:00 BASIC METABOLIC PANEL,BMP [CHEM] AM - Assessment Assessment:: RI right foot-no septic arthritis or osteomyelitis. Developing abscess. - Plan Plan:: 1. Continue IV antibiotics. 2. Culture of the wound should be done later today. 3. BMP/CBC pending. If his creatinine comes on consider restarting his Metf ormin. 4. Dr. Mohs saw him. Did not feel he should debride them at this time. Couple days ago the wound drained hopefully that should take care of it. 5. Right now his blood sugars are controlled on his Ozempic which she takes once a week. 6. Start Lovenox for VTE prophylaxis.
[2021-04-06] MEDS: Sodium Chloride 0.9% 10 ML Syringe FLUSH PRN ×5 (09:45→21:29)
[2021-04-06] MEDS: Enoxaparin 40 MG/0.4 ML Syringe SUBCUT SCH (09:49)
[2021-04-06] MEDS: VANCOmycin 1.5 GM/300 ML 300 ML IV SCH ×2 (09:50→21:23)
[2021-04-06] MEDS: Losartan 50 MG Tab PO SCH (11:36)
[2021-04-06] MEDS: atorvaSTATin 20 MG Tab PO SCH (21:22)
[2021-04-07] MEDS: Sodium Chloride 0.9% 10 ML Syringe FLUSH PRN ×4 (05:47→23:46)
[2021-04-07] MEDS: Piperacillin/Tazobactam 3.375 GM in Sodium Chloride 0.9% 50 ML IV SCH ×4 (05:48→23:45)
--- NOTE | 2021-04-07 09:08 | PCM.PN ---
- General Info Date of Service: 04/07/21 Admission Dx/Problem (Free Text): Patient thinks his right foot is less swollen. He cannot feel any pain. He has no fevers, chills, aches. - Patient Data Vitals - Most Recent: Last Vital Signs Temp 98.4 F 04/07/21 00:00 Pulse 89 04/07/21 00:00 Resp 16 04/07/21 00:00 BP 130/77 04/07/21 00:00 Pulse Ox 98 04/07/21 00:00 Weight - Most Recent: 305 lb 7 oz Lab Results Last 24 Hours: Laboratory Results - last 24 hr 04/06/21 04/06/21 04/06/21 Range/Units 08:33 08:33 08:33 WBC 8.3 (3.2-10.1) x10-3/uL RBC 4.36 (3.90-5.90) x10(6)uL Hgb 12.8 L (12.9-17.7) g/dL Hct 37.6 L (38.3-50.1) % MCV 86.4 (80.8-98.7) fL MCH 29.3 (27.0-33.3) pg MCHC 33.9 (28.7-35.3) g/dL RDW 13.2 (12.4-15.0) % Plt Count 255 (117-477) x10(3)uL MPV 8.2 (6.7-11.0) fL Neut % (Auto) 62.6 (40.3-71.8) % Lymph % (Auto) 20.5 (15.8-45.3) % [place] % (Auto) 12.9 (5.5-15.2) % Eos % (Auto) 3.0 (0.1-6.8) % Baso % (Auto) 1.0 (0.3-3.8) % Neut # (Auto) 5.2 (1.7-6.9) x10-3/uL Lymph # (Auto) 1.7 (0.5-4.5) x10-3/uL [place] # (Auto) 1.1 (0.0-1.2) x10-3/uL Eos # (Auto) 0.2 (0.0-0.6) x10-3/uL Baso # (Auto) 0.1 (0.0-0.3) x10-3/uL Sodium 136 (135-145) mmol/L Potassium 4.2 (3.5-5.3) mmol/L Chloride 101 (100-110) mmol/L Carbon Dioxide 29 (21-32) mmol/L BUN 12 D (7-18) mg/dL Creatinine 1.4 H (0.70-1.30) mg/dL Est Cr Clr Drug Dosing 89.56 mL/min Estimated GFR (MDRD) 57 L (>60) BUN/Creatinine Ratio 8.6 L (9-20) Glucose 168 H (80-116) mg/dL POC Glucose (80-116) mg/dL Calcium 8.7 (8.6-10.2) mg/dL Vancomycin Trough 20.2 H (<0.8) ug/mL 04/06/21 04/06/21 04/06/21 Range/Units 11:58 17:09 21:21 WBC (3.2-10.1) x10-3/uL RBC (3.90-5.90) x10(6)uL Hgb (12.9-17.7) g/dL Hct (38.3-50.1) % MCV (80.8-98.7) fL MCH (27.0-33.3) pg MCHC (28.7-35.3) g/dL RDW (12.4-15.0) % Plt Count (117-477) x10(3)uL MPV (6.7-11.0) fL Neut % (Auto) (40.3-71.8) % Lymph % (Auto) (15.8-45.3) % [place] % (Auto) (5.5-15.2) % Eos % (Auto) (0.1-6.8) % Baso % (Auto) (0.3-3.8) % Neut # (Auto) (1.7-6.9) x10-3/uL Lymph # (Auto) (0.5-4.5) x10-3/uL [place] # (Auto) (0.0-1.2) x10-3/uL Eos # (Auto) (0.0-0.6) x10-3/uL Baso # (Auto) (0.0-0.3) x10-3/uL Sodium (135-145) mmol/L Potassium (3.5-5.3) mmol/L Chloride (100-110) mmol/L Carbon Dioxide (21-32) mmol/L BUN (7-18) mg/dL Creatinine (0.70-1.30) mg/dL Est Cr Clr Drug Dosing mL/min Estimated GFR (MDRD) (>60) BUN/Creatinine Ratio (9-20) Glucose (80-116) mg/dL POC Glucose 140 H 135 H 159 H (80-116) mg/dL Calcium (8.6-10.2) mg/dL Vancomycin Trough (<0.8) ug/mL 04/07/21 Range/Units 06:22 WBC (3.2-10.1) x10-3/uL RBC (3.90-5.90) x10(6)uL Hgb (12.9-17.7) g/dL Hct (38.3-50.1) % MCV (80.8-98.7) fL MCH (27.0-33.3) pg MCHC (28.7-35.3) g/dL RDW (12.4-15.0) % Plt Count (117-477) x10(3)uL MPV (6.7-11.0) fL Neut % (Auto) (40.3-71.8) % Lymph % (Auto) (15.8-45.3) % [place] % (Auto) (5.5-15.2) % Eos % (Auto) (0.1-6.8) % Baso % (Auto) (0.3-3.8) % Neut # (Auto) (1.7-6.9) x10-3/uL Lymph # (Auto) (0.5-4.5) x10-3/uL [place] # (Auto) (0.0-1.2) x10-3/uL Eos # (Auto) (0.0-0.6) x10-3/uL Baso # (Auto) (0.0-0.3) x10-3/uL Sodium 137 (135-145) mmol/L Potassium 4.1 (3.5-5.3) mmol/L Chloride 102 (100-110) mmol/L Carbon Dioxide 28 (21-32) mmol/L BUN 15 (7-18) mg/dL Creatinine 1.4 H (0.70-1.30) mg/dL Est Cr Clr Drug Dosing 89.56 mL/min Estimated GFR (MDRD) 57 L (>60) BUN/Creatinine Ratio 10.7 (9-20) Glucose 187 H (80-116) mg/dL POC Glucose (80-116) mg/dL Calcium 8.6 (8.6-10.2) mg/dL Vancomycin Trough (<0.8) ug/mL Jens Results Last 24 Hours: Microbiology 04/04/21 21:12 Aerobic Blood Culture - Preliminary Blood - Venous - Lab Draw NO GROWTH AFTER 2 DAYS Anaerobic Blood Culture - Preliminary NO GROWTH AFTER 2 DAYS 04/04/21 21:07 Aerobic Blood Culture - Preliminary Blood - Venous NO GROWTH AFTER 2 DAYS Anaerobic Blood Culture - Preliminary NO GROWTH AFTER 2 DAYS 04/04/21 20:55 Gram Stain - Final Skin / Skin Scrapings - Foot, Right Testing performed by: [address] [id number] SEE SEPARATE/SCANNED REPORT Routine Culture - Preliminary Testing performed by: [address] [address] SEE SEPARATE/SCANNED REPORT Med Orders - Current: Current Medications Atorvastatin Calcium (Atorvastatin 20 Mg Tab) 20 mg PO BEDTIME [facility] Last Admin: 04/06/21 21:22 Dose: 20 mg Documented by: Enoxaparin Sodium (Enoxaparin 40 Mg/0.4 Ml Syringe) 40 mg SUBCUT Q24H [facility] Last Admin: 04/06/21 09:49 Dose: 40 mg Documented by: Piperacillin Sod/Tazobactam (Sod 3.375 gm/ Sodium Chloride) 50 mls @ 100 mls/hr IV Q6H [facility] Last Admin: 04/07/21 05:48 Dose: 100 mls/hr Documented by: Vancomycin HCl (Vancomycin 1.5 Gm/300 Ml) 300 mls @ 200 mls/hr IV Q12H [facility] Last Admin: 04/06/21 21:23 Dose: 200 mls/hr Documented by: Losartan Potassium (Losartan 50 Mg Tab) 50 mg PO DAILY [facility] Last Admin: 04/06/21 11:36 Dose: 50 mg Documented by: Metformin HCl (Metformin 500 Mg Tab.Er) 500 mg PO BIDMEALS [facility] Non-Formulary Medication (Semaglutide [Ozempic]) 0.25 mg SQ KRAUS [facility] Sodium Chloride (Sodium Chloride 0.9% 10 Ml Syringe) 10 ml FLUSH ASDIRECTED PRN PRN Reason: saline lock flush Last Admin: 04/07/21 05:47 Dose: 10 ml Documented by: Vancomycin HCl (Pharmacy To Dose - Vancomycin) 0 dose .XX DAILY [facility] Discontinued Medications Gadoteridol (Gadoteridol 279.3 Mg/Ml 20 Ml Sdv) 20 ml IV . DIRECTED ONE Stop: 04/05/21 15:03 Last Admin: 04/05/21 15:23 Dose: 20 ml Documented by: Hydrochlorothiazide (Hydrochlorothiazide 25 Mg Tab) 25 mg PO BEDTIME [facility] Last Admin: 04/05/21 21:12 Dose: 25 mg Documented by: Piperacillin Sod/Tazobactam (Sod 3.375 gm/ Sodium Chloride) 50 mls @ 100 mls/hr IV Q6H [facility] Last Admin: 04/05/21 04:54 Dose: 100 mls/hr Documented by: Vancomycin HCl 2 gm/ Premix 400 mls @ 200 mls/hr IV STAT ONE Stop: 04/05/21 00:29 Last Admin: 04/04/21 22:43 Dose: 200 mls/hr Documented by: Sodium Chloride (Normal Saline) 1,000 mls @ 150 mls/hr IV ASDIRECTED [facility] Last Admin: 04/05/21 08:40 Dose: 150 mls/hr Documented by: Vancomycin HCl 2 gm/ Premix 400 mls @ 200 mls/hr IV Q12H [facility] Last Admin: 04/05/21 21:19 Dose: 200 mls/hr Documented by: Piperacillin Sod/Tazobactam (Sod 3.375 gm/ Sodium Chloride) 50 mls @ 100 mls/hr IV Q6H [facility] Last Admin: 04/05/21 13:04 Dose: Not Given Documented by: Lisinopril (Lisinopril 20 Mg Tab) 20 mg PO BEDTIME [facility] Last Admin: 04/05/21 21:13 Dose: 20 mg Documented by: Metformin HCl (Metformin 500 Mg Tab) 500 mg PO BIDMEALS [facility] Last Admin: 04/05/21 08:55 Dose: 500 mg Documented by: - Exam General: Alert, Oriented, Cooperative Peripheral Pulses: 2+: Dorsalis Pedis (L), Dorsalis Pedis (R) Skin: Other (Right foot rash still remains with a area of whiteness but there is no real fluctuance underneath it. Swelling is decreased. Left foot redness is much improved and the ulcer is healing up nicely.) - Patient Data Lab Results Last 24 hrs: Laboratory Results - last 24 hr 04/06/21 04/06/21 04/06/21 Range/Units 08:33 08:33 08:33 WBC 8.3 (3.2-10.1) x10-3/uL RBC 4.36 (3.90-5.90) x10(6)uL Hgb 12.8 L (12.9-17.7) g/dL Hct 37.6 L (38.3-50.1) % MCV 86.4 (80.8-98.7) fL MCH 29.3 (27.0-33.3) pg MCHC 33.9 (28.7-35.3) g/dL RDW 13.2 (12.4-15.0) % Plt Count 255 (117-477) x10(3)uL MPV 8.2 (6.7-11.0) fL Neut % (Auto) 62.6 (40.3-71.8) % Lymph % (Auto) 20.5 (15.8-45.3) % [place] % (Auto) 12.9 (5.5-15.2) % Eos % (Auto) 3.0 (0.1-6.8) % Baso % (Auto) 1.0 (0.3-3.8) % Neut # (Auto) 5.2 (1.7-6.9) x10-3/uL Lymph # (Auto) 1.7 (0.5-4.5) x10-3/uL [place] # (Auto) 1.1 (0.0-1.2) x10-3/uL Eos # (Auto) 0.2 (0.0-0.6) x10-3/uL Baso # (Auto) 0.1 (0.0-0.3) x10-3/uL Sodium 136 (135-145) mmol/L Potassium 4.2 (3.5-5.3) mmol/L Chloride 101 (100-110) mmol/L Carbon Dioxide 29 (21-32) mmol/L BUN 12 D (7-18) mg/dL Creatinine 1.4 H (0.70-1.30) mg/dL Est Cr Clr Drug Dosing 89.56 mL/min Estimated GFR (MDRD) 57 L (>60) BUN/Creatinine Ratio 8.6 L (9-20) Glucose 168 H (80-116) mg/dL POC Glucose (80-116) mg/dL Calcium 8.7 (8.6-10.2) mg/dL Vancomycin Trough 20.2 H (<0.8) ug/mL 04/06/21 04/06/21 04/06/21 Range/Units 11:58 17:09 21:21 WBC (3.2-10.1) x10-3/uL RBC (3.90-5.90) x10(6)uL Hgb (12.9-17.7) g/dL Hct (38.3-50.1) % MCV (80.8-98.7) fL MCH (27.0-33.3) pg MCHC (28.7-35.3) g/dL RDW (12.4-15.0) % Plt Count (117-477) x10(3)uL MPV (6.7-11.0) fL Neut % (Auto) (40.3-71.8) % Lymph % (Auto) (15.8-45.3) % [place] % (Auto) (5.5-15.2) % Eos % (Auto) (0.1-6.8) % Baso % (Auto) (0.3-3.8) % Neut # (Auto) (1.7-6.9) x10-3/uL Lymph # (Auto) (0.5-4.5) x10-3/uL [place] # (Auto) (0.0-1.2) x10-3/uL Eos # (Auto) (0.0-0.6) x10-3/uL Baso # (Auto) (0.0-0.3) x10-3/uL Sodium (135-145) mmol/L Potassium (3.5-5.3) mmol/L Chloride (100-110) mmol/L Carbon Dioxide (21-32) mmol/L BUN (7-18) mg/dL Creatinine (0.70-1.30) mg/dL Est Cr Clr Drug Dosing mL/min Estimated GFR (MDRD) (>60) BUN/Creatinine Ratio (9-20) Glucose (80-116) mg/dL POC Glucose 140 H 135 H 159 H (80-116) mg/dL Calcium (8.6-10.2) mg/dL Vancomycin Trough (<0.8) ug/mL 04/07/21 Range/Units 06:22 WBC (3.2-10.1) x10-3/uL RBC (3.90-5.90) x10(6)uL Hgb (12.9-17.7) g/dL Hct (38.3-50.1) % MCV (80.8-98.7) fL MCH (27.0-33.3) pg MCHC (28.7-35.3) g/dL RDW (12.4-15.0) % Plt Count (117-477) x10(3)uL MPV (6.7-11.0) fL Neut % (Auto) (40.3-71.8) % Lymph % (Auto) (15.8-45.3) % [place] % (Auto) (5.5-15.2) % Eos % (Auto) (0.1-6.8) % Baso % (Auto) (0.3-3.8) % Neut # (Auto) (1.7-6.9) x10-3/uL Lymph # (Auto) (0.5-4.5) x10-3/uL [place] # (Auto) (0.0-1.2) x10-3/uL Eos # (Auto) (0.0-0.6) x10-3/uL Baso # (Auto) (0.0-0.3) x10-3/uL Sodium 137 (135-145) mmol/L Potassium 4.1 (3.5-5.3) mmol/L Chloride 102 (100-110) mmol/L Carbon Dioxide 28 (21-32) mmol/L BUN 15 (7-18) mg/dL Creatinine 1.4 H (0.70-1.30) mg/dL Est Cr Clr Drug Dosing 89.56 mL/min Estimated GFR (MDRD) 57 L (>60) BUN/Creatinine Ratio 10.7 (9-20) Glucose 187 H (80-116) mg/dL POC Glucose (80-116) mg/dL Calcium 8.6 (8.6-10.2) mg/dL Vancomycin Trough (<0.8) ug/mL Result Diagrams: 04/06/21 08:33 04/07/21 06:22 Jens Results Last 24 hrs: Microbiology 04/04/21 21:12 Aerobic Blood Culture - Preliminary Blood - Venous - Lab Draw NO GROWTH AFTER 2 DAYS Anaerobic Blood Culture - Preliminary NO GROWTH AFTER 2 DAYS 04/04/21 21:07 Aerobic Blood Culture - Preliminary Blood - Venous NO GROWTH AFTER 2 DAYS Anaerobic Blood Culture - Preliminary NO GROWTH AFTER 2 DAYS 04/04/21 20:55 Gram Stain - Final Skin / Skin Scrapings - Foot, Right Testing performed by: [address] [id number] SEE SEPARATE/SCANNED REPORT Routine Culture - Preliminary Testing performed by: [address] [id number] SEE SEPARATE/SCANNED REPORT Sepsis Event Note - Evaluation Sepsis Screening Result: No Definite Risk - Focused Exam Vital Signs: Vital Signs Temp Pulse Resp BP Pulse Ox 04/07/21 00:00 98.4 F 89 16 130/77 98 - Problem List & Annotations (1) Cellulitis and abscess of right lower extremity SNOMED Code(s): 432479703 Code(s): L03.115 - CELLULITIS OF RIGHT LOWER LIMB; L02.415 - CUTANEOUS ABSCESS OF RIGHT LOWER LIMB Status: Acute Current Visit: Yes (2) Diabetes SNOMED Code(s): 76543144 Code(s): E11.9 - TYPE 2 DIABETES MELLITUS WITHOUT COMPLICATIONS Status: Acute Current Visit: Yes Qualifiers: Diabetes mellitus type: type 2 (3) GERD (gastroesophageal reflux disease) SNOMED Code(s): 277906657 Code(s): K21.9 - GASTRO-ESOPHAGEAL REFLUX DISEASE WITHOUT ESOPHAGITIS Status: Acute Current Visit: No Qualifiers: Esophagitis presence: esophagitis presence not specified Qualified Code(s): K21.9 - Gastro-esophageal reflux disease without esophagitis (4) HTN (hypertension) SNOMED Code(s): 02029387 Code(s): I10 - ESSENTIAL (PRIMARY) HYPERTENSION Status: Acute Current Visit: No (5) Noncompliance with medication regimen SNOMED Code(s): 458121059 Code(s): Z91.14 - PATIENT'S OTHER NONCOMPLIANCE WITH MEDICATION REGIMEN Status: Acute Current Visit: No - Problem List Review Problem List Initiated/Reviewed/Updated: Yes - My Orders Last 24 Hours: My Active Orders 04/06/21 09:00 Enoxaparin [Lovenox] 40 mg SUBCUT Q24H Losartan [Cozaar] 50 mg PO DAILY 04/06/21 09:30 VANCOmycin 1.5 GM/300 ML 300 ml IV Q12H 04/06/21 10:06 Sodium Chloride 0.9% [Saline Flush] 10 ml FLUSH ASDIRECTED PRN 04/06/21 17:26 Patient Status [ADT] Routine 04/07/21 18:00 metFORMIN [Glucophage XR] 500 mg PO BIDMEALS 04/07/21 21:00 VANCOMYCIN TROUGH [CHEM] Routine - Assessment Assessment:: MRI right foot-no septic arthritis or osteomyelitis. Developing abscess. Wound culture staph aureus sensitivity pending. - Plan Plan:: 1. Continue IV antibiotics. 2. Restart Metformin 500 mg twice daily. 3. Waiting for sensitivity for the wound culture.
[2021-04-07] MEDS: VANCOmycin 1.5 GM/300 ML 300 ML IV SCH (09:54)
[2021-04-07] MEDS: Enoxaparin 40 MG/0.4 ML Syringe SUBCUT SCH (09:55)
[2021-04-07] MEDS: Losartan 50 MG Tab PO SCH (09:56)
--- NOTE | 2021-04-07 14:51 | PCM.PN ---
- General Info Date of Service: 04/07/21 Functional Status: Reports: Pain Controlled - Review of Systems General: Reports: No Symptoms. Denies: Fever Musculoskeletal: Denies: Foot Pain - Patient Data Vitals - Most Recent: Last Vital Signs Temp 97 F 04/07/21 08:00 Pulse 79 04/07/21 08:00 Resp 18 04/07/21 08:00 BP 139/92 H 04/07/21 09:56 Pulse Ox 97 04/07/21 08:00 Weight - Most Recent: 138.544 kg I&O - Last 24 Hours: Intake & Output 04/06/21 04/07/21 04/07/21 22:59 06:59 14:59 Intake Total 41 Balance 41 Lab Results Last 24 Hours: Laboratory Results - last 24 hr 04/06/21 04/06/21 04/07/21 Range/Units 17:09 21:21 06:22 Sodium 137 (135-145) mmol/L Potassium 4.1 (3.5-5.3) mmol/L Chloride 102 (100-110) mmol/L Carbon Dioxide 28 (21-32) mmol/L BUN 15 (7-18) mg/dL Creatinine 1.4 H (0.70-1.30) mg/dL Est Cr Clr Drug Dosing 89.56 mL/min Estimated GFR (MDRD) 57 L (>60) BUN/Creatinine Ratio 10.7 (9-20) Glucose 187 H (80-116) mg/dL POC Glucose 135 H 159 H (80-116) mg/dL Calcium 8.6 (8.6-10.2) mg/dL Jens Results Last 24 Hours: Microbiology 04/04/21 21:12 Aerobic Blood Culture - Preliminary Blood - Venous - Lab Draw NO GROWTH AFTER 2 DAYS Anaerobic Blood Culture - Preliminary NO GROWTH AFTER 2 DAYS 04/04/21 21:07 Aerobic Blood Culture - Preliminary Blood - Venous NO GROWTH AFTER 2 DAYS Anaerobic Blood Culture - Preliminary NO GROWTH AFTER 2 DAYS 04/04/21 20:55 Gram Stain - Final Skin / Skin Scrapings - Foot, Right Testing performed by: [address] [address] SEE SEPARATE/SCANNED REPORT Routine Culture - Preliminary Testing performed by: [address] [address] SEE SEPARATE/SCANNED REPORT Med Orders - Current: Current Medications Atorvastatin Calcium (Atorvastatin 20 Mg Tab) 20 mg PO BEDTIME [facility] Last Admin: 04/06/21 21:22 Dose: 20 mg Documented by: Enoxaparin Sodium (Enoxaparin 40 Mg/0.4 Ml Syringe) 40 mg SUBCUT Q24H [facility] Last Admin: 04/07/21 09:55 Dose: 40 mg Documented by: Piperacillin Sod/Tazobactam (Sod 3.375 gm/ Sodium Chloride) 50 mls @ 100 mls/hr IV Q6H [facility] Last Admin: 04/07/21 12:00 Dose: 100 mls/hr Documented by: Vancomycin HCl (Vancomycin 1.5 Gm/300 Ml) 300 mls @ 200 mls/hr IV Q12H [facility] Last Admin: 04/07/21 09:54 Dose: 200 mls/hr Documented by: Losartan Potassium (Losartan 50 Mg Tab) 50 mg PO DAILY [facility] Last Admin: 04/07/21 09:56 Dose: 50 mg Documented by: Metformin HCl (Metformin 500 Mg Tab.Er) 500 mg PO BIDMEALS [facility] Non-Formulary Medication (Semaglutide [Ozempic]) 0.25 mg SQ KRAUS [facility] Sodium Chloride (Sodium Chloride 0.9% 10 Ml Syringe) 10 ml FLUSH ASDIRECTED PRN PRN Reason: saline lock flush Last Admin: 04/07/21 12:29 Dose: 10 ml Documented by: Vancomycin HCl (Pharmacy To Dose - Vancomycin) 0 dose .XX DAILY [facility] Discontinued Medications Gadoteridol (Gadoteridol 279.3 Mg/Ml 20 Ml Sdv) 20 ml IV . DIRECTED ONE Stop: 04/05/21 15:03 Last Admin: 04/05/21 15:23 Dose: 20 ml Documented by: Hydrochlorothiazide (Hydrochlorothiazide 25 Mg Tab) 25 mg PO BEDTIME [facility] Last Admin: 04/05/21 21:12 Dose: 25 mg Documented by: Piperacillin Sod/Tazobactam (Sod 3.375 gm/ Sodium Chloride) 50 mls @ 100 mls/hr IV Q6H [facility] Last Admin: 04/05/21 04:54 Dose: 100 mls/hr Documented by: Vancomycin HCl 2 gm/ Premix 400 mls @ 200 mls/hr IV STAT ONE Stop: 04/05/21 00:29 Last Admin: 04/04/21 22:43 Dose: 200 mls/hr Documented by: Sodium Chloride (Normal Saline) 1,000 mls @ 150 mls/hr IV ASDIRECTED [facility] Last Admin: 04/05/21 08:40 Dose: 150 mls/hr Documented by: Vancomycin HCl 2 gm/ Premix 400 mls @ 200 mls/hr IV Q12H [facility] Last Admin: 04/05/21 21:19 Dose: 200 mls/hr Documented by: Piperacillin Sod/Tazobactam (Sod 3.375 gm/ Sodium Chloride) 50 mls @ 100 mls/hr IV Q6H [facility] Last Admin: 04/05/21 13:04 Dose: Not Given Documented by: Lisinopril (Lisinopril 20 Mg Tab) 20 mg PO BEDTIME [facility] Last Admin: 04/05/21 21:13 Dose: 20 mg Documented by: Metformin HCl (Metformin 500 Mg Tab) 500 mg PO BIDMEALS [facility] Last Admin: 04/05/21 08:55 Dose: 500 mg Documented by: - Exam General: Alert, Oriented Extremities: Non-Tender, Joint Swelling (less r=than 2 days ago over R 1st Metatarsal region, erythema regressed approx 50%), Redness, Other (I trimmed the skin off and debribed area, no purulent drainage) - Patient Data Lab Results Last 24 hrs: Laboratory Results - last 24 hr 04/06/21 04/06/21 04/07/21 Range/Units 17:09 21:21 06:22 Sodium 137 (135-145) mmol/L Potassium 4.1 (3.5-5.3) mmol/L Chloride 102 (100-110) mmol/L Carbon Dioxide 28 (21-32) mmol/L BUN 15 (7-18) mg/dL Creatinine 1.4 H (0.70-1.30) mg/dL Est Cr Clr Drug Dosing 89.56 mL/min Estimated GFR (MDRD) 57 L (>60) BUN/Creatinine Ratio 10.7 (9-20) Glucose 187 H (80-116) mg/dL POC Glucose 135 H 159 H (80-116) mg/dL Calcium 8.6 (8.6-10.2) mg/dL Result Diagrams: 04/06/21 08:33 04/07/21 06:22 Jens Results Last 24 hrs: Microbiology 04/04/21 21:12 Aerobic Blood Culture - Preliminary Blood - Venous - Lab Draw NO GROWTH AFTER 2 DAYS Anaerobic Blood Culture - Preliminary NO GROWTH AFTER 2 DAYS 04/04/21 21:07 Aerobic Blood Culture - Preliminary Blood - Venous NO GROWTH AFTER 2 DAYS Anaerobic Blood Culture - Preliminary NO GROWTH AFTER 2 DAYS 04/04/21 20:55 Gram Stain - Final Skin / Skin Scrapings - Foot, Right Testing performed by: [address] [address] SEE SEPARATE/SCANNED REPORT Routine Culture - Preliminary Testing performed by: [address] [address] SEE SEPARATE/SCANNED REPORT Imaging Impressions Last 24 hrs: MRI discussed with radiologist, no drainable fluid collection. No apparent bone or joint involvement Sepsis Event Note - Evaluation Sepsis Screening Result: No Definite Risk - Focused Exam Vital Signs: Vital Signs Temp Pulse Resp BP BP Pulse Ox 04/07/21 09:56 139/92 H 04/07/21 08:00 97 F 79 18 139/92 H 97 - Problem List Review Problem List Initiated/Reviewed/Updated: Yes - My Orders Last 24 Hours: My Active Orders 04/06/21 19:50 Communication Order [RC] BID - Assessment Assessment:: MRI right foot-no septic arthritis or osteomyelitis. Developing abscess. Wound culture staph aureus sensitivity pending. - Plan Plan:: 1. Continue IV antibiotics. 2. Restart Metformin 500 mg twice daily. 3. Waiting for sensitivity for the wound culture.
[2021-04-07] MEDS: metFORMIN 500 MG Tab.ER PO SCH (17:07)
[2021-04-07] MEDS: atorvaSTATin 20 MG Tab PO SCH (21:21)
[2021-04-07] MEDS ORDERED: VANCOmycin 1.25 GM/250 ML 1.25 GM in Premix Bag 1 BAG IV SCH (22:00)
[2021-04-08] MEDS: VANCOmycin 1.5 GM/300 ML 300 ML IV SCH (02:20)
[2021-04-08] MEDS: Sodium Chloride 0.9% 10 ML Syringe FLUSH PRN ×2 (05:51→09:21)
[2021-04-08] MEDS: Piperacillin/Tazobactam 3.375 GM in Sodium Chloride 0.9% 50 ML IV SCH ×3 (05:52→18:30)
[2021-04-08] MEDS: metFORMIN 500 MG Tab.ER PO SCH (09:22)
[2021-04-08] MEDS: Losartan 50 MG Tab PO SCH (09:22)
[2021-04-08] MEDS: Enoxaparin 40 MG/0.4 ML Syringe SUBCUT SCH (09:23)
--- NOTE | 2021-04-08 12:45 | PCM.SURGPN ---
- General Info Date of Service: 04/08/21 Functional Status: Reports: Pain Controlled - Review of Systems General: Reports: No Symptoms. Denies: Fever - Patient Data Vitals - Most Recent: Last Vital Signs Temp 96.2 F L 04/08/21 08:00 Pulse 86 04/08/21 08:00 Resp 18 04/08/21 08:00 BP 138/90 04/08/21 09:22 Pulse Ox 97 04/08/21 08:00 Weight - Most Recent: 138.544 kg Lab Results Last 24 Hrs: Laboratory Results - last 24 hr 04/07/21 04/07/21 04/07/21 Range/Units 11:28 17:05 21:00 Sodium (135-145) mmol/L Potassium (3.5-5.3) mmol/L Chloride (100-110) mmol/L Carbon Dioxide (21-32) mmol/L BUN (7-18) mg/dL Creatinine (0.70-1.30) mg/dL Est Cr Clr Drug Dosing mL/min Estimated GFR (MDRD) (>60) BUN/Creatinine Ratio (9-20) Glucose (80-116) mg/dL POC Glucose 152 H 130 H (80-116) mg/dL Calcium (8.6-10.2) mg/dL Vancomycin Trough 17.8 H (<0.8) ug/mL 04/07/21 04/08/21 04/08/21 Range/Units 21:18 06:32 08:45 Sodium 136 (135-145) mmol/L Potassium 4.0 (3.5-5.3) mmol/L Chloride 102 (100-110) mmol/L Carbon Dioxide 28 (21-32) mmol/L BUN 12 (7-18) mg/dL Creatinine 1.5 H (0.70-1.30) mg/dL Est Cr Clr Drug Dosing 83.59 mL/min Estimated GFR (MDRD) 53 L (>60) BUN/Creatinine Ratio 8.0 L (9-20) Glucose 152 H (80-116) mg/dL POC Glucose 166 H 133 H (80-116) mg/dL Calcium 8.9 (8.6-10.2) mg/dL Vancomycin Trough (<0.8) ug/mL 04/08/21 Range/Units 11:32 Sodium (135-145) mmol/L Potassium (3.5-5.3) mmol/L Chloride (100-110) mmol/L Carbon Dioxide (21-32) mmol/L BUN (7-18) mg/dL Creatinine (0.70-1.30) mg/dL Est Cr Clr Drug Dosing mL/min Estimated GFR (MDRD) (>60) BUN/Creatinine Ratio (9-20) Glucose (80-116) mg/dL POC Glucose 159 H (80-116) mg/dL Calcium (8.6-10.2) mg/dL Vancomycin Trough (<0.8) ug/mL Jens Results Last 24 Hrs: Microbiology 04/04/21 21:12 Aerobic Blood Culture - Preliminary Blood - Venous - Lab Draw NO GROWTH AFTER 3 DAYS Anaerobic Blood Culture - Preliminary NO GROWTH AFTER 3 DAYS 04/04/21 21:07 Aerobic Blood Culture - Preliminary Blood - Venous NO GROWTH AFTER 3 DAYS Anaerobic Blood Culture - Preliminary NO GROWTH AFTER 3 DAYS Med Orders - Current: Current Medications Atorvastatin Calcium (Atorvastatin 20 Mg Tab) 20 mg PO BEDTIME [facility] Last Admin: 04/07/21 21:21 Dose: 20 mg Documented by: Enoxaparin Sodium (Enoxaparin 40 Mg/0.4 Ml Syringe) 40 mg SUBCUT Q24H [facility] Last Admin: 04/08/21 09:23 Dose: 40 mg Documented by: Piperacillin Sod/Tazobactam (Sod 3.375 gm/ Sodium Chloride) 50 mls @ 100 mls/hr IV Q6H [facility] Last Admin: 04/08/21 12:21 Dose: 100 mls/hr Documented by: Losartan Potassium (Losartan 50 Mg Tab) 50 mg PO DAILY [facility] Last Admin: 04/08/21 09:22 Dose: 50 mg Documented by: Metformin HCl (Metformin 500 Mg Tab.Er) 500 mg PO BIDMEALS [facility] Last Admin: 04/08/21 09:22 Dose: 500 mg Documented by: Non-Formulary Medication (Semaglutide [Ozempic]) 0.25 mg SQ KRAUS [facility] Sodium Chloride (Sodium Chloride 0.9% 10 Ml Syringe) 10 ml FLUSH ASDIRECTED PRN PRN Reason: saline lock flush Last Admin: 04/08/21 09:21 Dose: 10 ml Documented by: Discontinued Medications Gadoteridol (Gadoteridol 279.3 Mg/Ml 20 Ml Sdv) 20 ml IV . DIRECTED ONE Stop: 04/05/21 15:03 Last Admin: 04/05/21 15:23 Dose: 20 ml Documented by: Hydrochlorothiazide (Hydrochlorothiazide 25 Mg Tab) 25 mg PO BEDTIME [facility] Last Admin: 04/05/21 21:12 Dose: 25 mg Documented by: Piperacillin Sod/Tazobactam (Sod 3.375 gm/ Sodium Chloride) 50 mls @ 100 mls/hr IV Q6H [facility] Last Admin: 04/05/21 04:54 Dose: 100 mls/hr Documented by: Vancomycin HCl 2 gm/ Premix 400 mls @ 200 mls/hr IV STAT ONE Stop: 04/05/21 00:29 Last Admin: 04/04/21 22:43 Dose: 200 mls/hr Documented by: Sodium Chloride (Normal Saline) 1,000 mls @ 150 mls/hr IV ASDIRECTED [facility] Last Admin: 04/05/21 08:40 Dose: 150 mls/hr Documented by: Vancomycin HCl 2 gm/ Premix 400 mls @ 200 mls/hr IV Q12H [facility] Last Admin: 04/05/21 21:19 Dose: 200 mls/hr Documented by: Piperacillin Sod/Tazobactam (Sod 3.375 gm/ Sodium Chloride) 50 mls @ 100 mls/hr IV Q6H [facility] Last Admin: 04/05/21 13:04 Dose: Not Given Documented by: Vancomycin HCl (Vancomycin 1.5 Gm/300 Ml) 300 mls @ 200 mls/hr IV Q12H [facility] Last Admin: 04/08/21 02:20 Dose: Not Given Documented by: Vancomycin HCl 1.25 gm/ Premix 250 mls @ 166.667 mls/hr IV Q12H [facility] Last Admin: 04/07/21 22:04 Dose: 166.667 mls/hr Documented by: Lisinopril (Lisinopril 20 Mg Tab) 20 mg PO BEDTIME [facility] Last Admin: 04/05/21 21:13 Dose: 20 mg Documented by: Metformin HCl (Metformin 500 Mg Tab) 500 mg PO BIDMEALS [facility] Last Admin: 04/05/21 08:55 Dose: 500 mg Documented by: - Exam Wound/Incisions: Drainage (scant), Erythema Improving (slightly since yesterday) Sepsis Event Note - Evaluation Sepsis Screening Result: No Definite Risk - Focused Exam Vital Signs: Vital Signs Temp Pulse Resp BP BP Pulse Ox 04/08/21 09:22 138/90 04/08/21 08:00 96.2 F L 86 18 138/90 97 - Problem List Review Problem List Initiated/Reviewed/Updated: Yes - My Orders Last 24 Hours: Active Orders 24 hr Category Date Time Status Semaglutide [Ozempic] Med 04/10/21 23:34 Pending 0.25 mg SQ KRAUS metFORMIN [Glucophage XR] Med 04/07/21 18:00 Active 500 mg PO BIDMEALS Medication Orders Atorvastatin Calcium (Atorvastatin 20 Mg Tab) 20 mg PO BEDTIME [facility] Last Admin: 04/07/21 21:21 Dose: 20 mg Documented by: Admin: 04/06/21 21:22 Dose: 20 mg Documented by: Admin: 04/05/21 21:16 Dose: 20 mg Documented by: RODNEY Enoxaparin Sodium (Enoxaparin 40 Mg/0.4 Ml Syringe) 40 mg SUBCUT Q24H [facility] Last Admin: 04/08/21 09:23 Dose: 40 mg Documented by: Admin: 04/07/21 09:55 Dose: 40 mg Documented by: Admin: 04/06/21 09:49 Dose: 40 mg Documented by: RADHA Piperacillin Sod/Tazobactam (Sod 3.375 gm/ Sodium Chloride) 50 mls @ 100 mls/hr IV Q6H [facility] Last Admin: 04/08/21 12:21 Dose: 100 mls/hr Documented by: Admin: 04/08/21 05:52 Dose: 100 mls/hr Documented by: Admin: 04/07/21 23:45 Dose: 100 mls/hr Documented by: Admin: 04/07/21 17:08 Dose: 100 mls/hr Documented by: Admin: 04/07/21 12:00 Dose: 100 mls/hr Documented by: Admin: 04/07/21 05:48 Dose: 100 mls/hr Documented by: Admin: 04/06/21 23:00 Dose: 100 mls/hr Documented by: NOELEINSarai Admin: 04/06/21 18:18 Dose: 100 mls/hr Documented by: Admin: 04/06/21 11:51 Dose: 100 mls/hr Documented by: Admin: 04/06/21 06:47 Dose: 100 mls/hr Documented by: Admin: 04/05/21 23:44 Dose: 100 mls/hr Documented by: Admin: 04/05/21 17:48 Dose: 100 mls/hr Documented by: Admin: 04/05/21 12:04 Dose: 100 mls/hr Documented by: RADHA Losartan Potassium (Losartan 50 Mg Tab) 50 mg PO DAILY [facility] Last Admin: 04/08/21 09:22 Dose: 50 mg Documented by: Admin: 04/07/21 09:56 Dose: 50 mg Documented by: Admin: 04/06/21 11:36 Dose: 50 mg Documented by: RADHA Metformin HCl (Metformin 500 Mg Tab.Er) 500 mg PO BIDMEALS [facility] Last Admin: 04/08/21 09:22 Dose: 500 mg Documented by: Admin: 04/07/21 17:07 Dose: 500 mg Documented by: ROXANNE Non-Formulary Medication (Semaglutide [Ozempic]) 0.25 mg SQ KRAUS [facility] Sodium Chloride (Sodium Chloride 0.9% 10 Ml Syringe) 10 ml FLUSH ASDIRECTED PRN PRN Reason: saline lock flush Last Admin: 04/08/21 09:21 Dose: 10 ml Documented by: Admin: 04/08/21 05:51 Dose: 10 ml Documented by: Admin: 04/07/21 23:46 Dose: 10 ml Documented by: Admin: 04/07/21 22:09 Dose: 10 ml Documented by: Admin: 04/07/21 12:29 Dose: 10 ml Documented by: Admin: 04/07/21 05:47 Dose: 10 ml Documented by: Admin: 04/06/21 21:29 Dose: 10 ml Documented by: Admin: 04/06/21 18:18 Dose: 10 ml Documented by: Admin: 04/06/21 12:20 Dose: 10 ml Documented by: Admin: 04/06/21 11:27 Dose: 10 ml Documented by: Admin: 04/06/21 09:45 Dose: 10 ml Documented by: RADHA - Assessment Assessment (Free Text/Narrative):: R foot infection improving slowly - Plan Plan (Free Text/Narrative):: Has been changed to po antibiotics, hopefully home in the next day or two. Will need to f/u with podiatry.
--- NOTE | 2021-04-08 14:20 | PCM.PN ---
- General Info Date of Service: 04/08/21 Subjective Update: Willie states his foot is feeling better. no fevers or chills. Having some loose stools but no rash. Has allergy to Cephalexin but his son has allergy to amoxicillin. Has been tolerating Zosyn so far. His wound culture came back staph aureus, pansensitive so Vancomycin discontinued today. Erythema improved. Cr up to 1.5. Functional Status: Reports: Pain Controlled, Tolerating Diet, Ambulating, Urinating. Denies: New Symptoms - Patient Data Vitals - Most Recent: Last Vital Signs Temp 96.2 F L 04/08/21 08:00 Pulse 86 04/08/21 08:00 Resp 18 04/08/21 08:00 BP 138/90 04/08/21 09:22 Pulse Ox 97 04/08/21 08:00 Weight - Most Recent: 305 lb 7 oz Lab Results Last 24 Hours: Laboratory Results - last 24 hr 04/07/21 04/07/21 04/07/21 Range/Units 11:28 17:05 21:00 Sodium (135-145) mmol/L Potassium (3.5-5.3) mmol/L Chloride (100-110) mmol/L Carbon Dioxide (21-32) mmol/L BUN (7-18) mg/dL Creatinine (0.70-1.30) mg/dL Est Cr Clr Drug Dosing mL/min Estimated GFR (MDRD) (>60) BUN/Creatinine Ratio (9-20) Glucose (80-116) mg/dL POC Glucose 152 H 130 H (80-116) mg/dL Calcium (8.6-10.2) mg/dL Vancomycin Trough 17.8 H (<0.8) ug/mL 04/07/21 04/08/21 04/08/21 Range/Units 21:18 06:32 08:45 Sodium 136 (135-145) mmol/L Potassium 4.0 (3.5-5.3) mmol/L Chloride 102 (100-110) mmol/L Carbon Dioxide 28 (21-32) mmol/L BUN 12 (7-18) mg/dL Creatinine 1.5 H (0.70-1.30) mg/dL Est Cr Clr Drug Dosing 83.59 mL/min Estimated GFR (MDRD) 53 L (>60) BUN/Creatinine Ratio 8.0 L (9-20) Glucose 152 H (80-116) mg/dL POC Glucose 166 H 133 H (80-116) mg/dL Calcium 8.9 (8.6-10.2) mg/dL Vancomycin Trough (<0.8) ug/mL 04/08/21 Range/Units 11:32 Sodium (135-145) mmol/L Potassium (3.5-5.3) mmol/L Chloride (100-110) mmol/L Carbon Dioxide (21-32) mmol/L BUN (7-18) mg/dL Creatinine (0.70-1.30) mg/dL Est Cr Clr Drug Dosing mL/min Estimated GFR (MDRD) (>60) BUN/Creatinine Ratio (9-20) Glucose (80-116) mg/dL POC Glucose 159 H (80-116) mg/dL Calcium (8.6-10.2) mg/dL Vancomycin Trough (<0.8) ug/mL Jens Results Last 24 Hours: Microbiology 04/04/21 21:12 Aerobic Blood Culture - Preliminary Blood - Venous - Lab Draw NO GROWTH AFTER 3 DAYS Anaerobic Blood Culture - Preliminary NO GROWTH AFTER 3 DAYS 04/04/21 21:07 Aerobic Blood Culture - Preliminary Blood - Venous NO GROWTH AFTER 3 DAYS Anaerobic Blood Culture - Preliminary NO GROWTH AFTER 3 DAYS Med Orders - Current: Current Medications Atorvastatin Calcium (Atorvastatin 20 Mg Tab) 20 mg PO BEDTIME [facility] Last Admin: 04/07/21 21:21 Dose: 20 mg Documented by: Enoxaparin Sodium (Enoxaparin 40 Mg/0.4 Ml Syringe) 40 mg SUBCUT Q24H [facility] Last Admin: 04/08/21 09:23 Dose: 40 mg Documented by: Piperacillin Sod/Tazobactam (Sod 3.375 gm/ Sodium Chloride) 50 mls @ 100 mls/hr IV Q6H [facility] Last Admin: 04/08/21 12:21 Dose: 100 mls/hr Documented by: Losartan Potassium (Losartan 50 Mg Tab) 50 mg PO DAILY [facility] Last Admin: 04/08/21 09:22 Dose: 50 mg Documented by: Metformin HCl (Metformin 500 Mg Tab.Er) 500 mg PO BIDMEALS [facility] Last Admin: 04/08/21 09:22 Dose: 500 mg Documented by: Metformin HCl (Metformin 1,000 Mg Tab) 500 mg PO BIDMEALS [facility] Non-Formulary Medication (Semaglutide [Ozempic]) 0.25 mg SQ KRAUS [facility] Sodium Chloride (Sodium Chloride 0.9% 10 Ml Syringe) 10 ml FLUSH ASDIRECTED PRN PRN Reason: saline lock flush Last Admin: 04/08/21 09:21 Dose: 10 ml Documented by: Discontinued Medications Gadoteridol (Gadoteridol 279.3 Mg/Ml 20 Ml Sdv) 20 ml IV . DIRECTED ONE Stop: 04/05/21 15:03 Last Admin: 04/05/21 15:23 Dose: 20 ml Documented by: Hydrochlorothiazide (Hydrochlorothiazide 25 Mg Tab) 25 mg PO BEDTIME [facility] Last Admin: 04/05/21 21:12 Dose: 25 mg Documented by: Piperacillin Sod/Tazobactam (Sod 3.375 gm/ Sodium Chloride) 50 mls @ 100 mls/hr IV Q6H [facility] Last Admin: 04/05/21 04:54 Dose: 100 mls/hr Documented by: Vancomycin HCl 2 gm/ Premix 400 mls @ 200 mls/hr IV STAT ONE Stop: 04/05/21 00:29 Last Admin: 04/04/21 22:43 Dose: 200 mls/hr Documented by: Sodium Chloride (Normal Saline) 1,000 mls @ 150 mls/hr IV ASDIRECTED [facility] Last Admin: 04/05/21 08:40 Dose: 150 mls/hr Documented by: Vancomycin HCl 2 gm/ Premix 400 mls @ 200 mls/hr IV Q12H [facility] Last Admin: 04/05/21 21:19 Dose: 200 mls/hr Documented by: Piperacillin Sod/Tazobactam (Sod 3.375 gm/ Sodium Chloride) 50 mls @ 100 mls/hr IV Q6H [facility] Last Admin: 04/05/21 13:04 Dose: Not Given Documented by: Vancomycin HCl (Vancomycin 1.5 Gm/300 Ml) 300 mls @ 200 mls/hr IV Q12H [facility] Last Admin: 04/08/21 02:20 Dose: Not Given Documented by: Vancomycin HCl 1.25 gm/ Premix 250 mls @ 166.667 mls/hr IV Q12H [facility] Last Admin: 04/07/21 22:04 Dose: 166.667 mls/hr Documented by: Lisinopril (Lisinopril 20 Mg Tab) 20 mg PO BEDTIME [facility] Last Admin: 04/05/21 21:13 Dose: 20 mg Documented by: Metformin HCl (Metformin 500 Mg Tab) 500 mg PO BIDMEALS [facility] Last Admin: 04/05/21 08:55 Dose: 500 mg Documented by: - Exam General: Alert, Oriented, Cooperative, No Acute Distress Lungs: Clear to Auscultation, Normal Respiratory Effort Cardiovascular: Regular Rate, Regular Rhythm GI/Abdominal Exam: Normal Bowel Sounds, Soft, Non-Tender, No Distention Extremities: No Pedal Edema, Redness (right medial foot). No: Increased Warmth Peripheral Pulses: 2+: Radial (L), Radial (R) Wound/Incisions: Drainage (minimal weeping from ulcers on right great toe), Erythema Improving (from skin markings from 04/07, improved slightly. ) - Patient Data Lab Results Last 24 hrs: Laboratory Results - last 24 hr 04/07/21 04/07/21 04/07/21 Range/Units 11:28 17:05 21:00 Sodium (135-145) mmol/L Potassium (3.5-5.3) mmol/L Chloride (100-110) mmol/L Carbon Dioxide (21-32) mmol/L BUN (7-18) mg/dL Creatinine (0.70-1.30) mg/dL Est Cr Clr Drug Dosing mL/min Estimated GFR (MDRD) (>60) BUN/Creatinine Ratio (9-20) Glucose (80-116) mg/dL POC Glucose 152 H 130 H (80-116) mg/dL Calcium (8.6-10.2) mg/dL Vancomycin Trough 17.8 H (<0.8) ug/mL 04/07/21 04/08/21 04/08/21 Range/Units 21:18 06:32 08:45 Sodium 136 (135-145) mmol/L Potassium 4.0 (3.5-5.3) mmol/L Chloride 102 (100-110) mmol/L Carbon Dioxide 28 (21-32) mmol/L BUN 12 (7-18) mg/dL Creatinine 1.5 H (0.70-1.30) mg/dL Est Cr Clr Drug Dosing 83.59 mL/min Estimated GFR (MDRD) 53 L (>60) BUN/Creatinine Ratio 8.0 L (9-20) Glucose 152 H (80-116) mg/dL POC Glucose 166 H 133 H (80-116) mg/dL Calcium 8.9 (8.6-10.2) mg/dL Vancomycin Trough (<0.8) ug/mL 04/08/21 Range/Units 11:32 Sodium (135-145) mmol/L Potassium (3.5-5.3) mmol/L Chloride (100-110) mmol/L Carbon Dioxide (21-32) mmol/L BUN (7-18) mg/dL Creatinine (0.70-1.30) mg/dL Est Cr Clr Drug Dosing mL/min Estimated GFR (MDRD) (>60) BUN/Creatinine Ratio (9-20) Glucose (80-116) mg/dL POC Glucose 159 H (80-116) mg/dL Calcium (8.6-10.2) mg/dL Vancomycin Trough (<0.8) ug/mL Result Diagrams: 04/06/21 08:33 04/08/21 08:45 Jens Results Last 24 hrs: Microbiology 04/04/21 21:12 Aerobic Blood Culture - Preliminary Blood - Venous - Lab Draw NO GROWTH AFTER 3 DAYS Anaerobic Blood Culture - Preliminary NO GROWTH AFTER 3 DAYS 04/04/21 21:07 Aerobic Blood Culture - Preliminary Blood - Venous NO GROWTH AFTER 3 DAYS Anaerobic Blood Culture - Preliminary NO GROWTH AFTER 3 DAYS Sepsis Event Note - Evaluation Sepsis Screening Result: No Definite Risk - Focused Exam Vital Signs: Vital Signs Temp Pulse Resp BP BP Pulse Ox 04/08/21 09:22 138/90 04/08/21 08:00 96.2 F L 86 18 138/90 97 - Problem List & Annotations (1) Cellulitis and abscess of right lower extremity SNOMED Code(s): 348635929 Code(s): L03.115 - CELLULITIS OF RIGHT LOWER LIMB; L02.415 - CUTANEOUS ABSCESS OF RIGHT LOWER LIMB Status: Acute Current Visit: Yes (2) Diabetes SNOMED Code(s): 16734129 Code(s): E11.9 - TYPE 2 DIABETES MELLITUS WITHOUT COMPLICATIONS Status: Chronic Current Visit: Yes Qualifiers: Diabetes mellitus type: type 2 (3) GERD (gastroesophageal reflux disease) SNOMED Code(s): 744349833 Code(s): K21.9 - GASTRO-ESOPHAGEAL REFLUX DISEASE WITHOUT ESOPHAGITIS Status: Chronic Current Visit: No Qualifiers: Esophagitis presence: esophagitis presence not specified Qualified Code(s): K21.9 - Gastro-esophageal reflux disease without esophagitis (4) HTN (hypertension) SNOMED Code(s): 66674151 Code(s): I10 - ESSENTIAL (PRIMARY) HYPERTENSION Status: Chronic Current Visit: No (5) Noncompliance with medication regimen SNOMED Code(s): 911674019 Code(s): Z91.14 - PATIENT'S OTHER NONCOMPLIANCE WITH MEDICATION REGIMEN Status: Chronic Current Visit: No - Problem List Review Problem List Initiated/Reviewed/Updated: Yes - My Orders Last 24 Hours: My Active Orders 04/08/21 18:00 metFORMIN [Glucophage] 500 mg PO BIDMEALS 04/09/21 06:00 BASIC METABOLIC PANEL,BMP [CHEM] Routine CBC WITH AUTO DIFF [HEME] Routine - Plan Plan:: 1. Cellulitis, right foot: MRI right foot-no septic arthritis, osteomyelitis or developing abscess. Wound culture grew staph aureus pansensitive. Continue Zosyn and discontinue Vancomycin. Repeat CBC & BMP tomorrow. Switch to oral in am, and possible home tomorrow. 2. DM. Restarted home dose of Metformin 500 mg bid. 3. Disposition: possibly home tomorrow on oral Augmentin if he tolerates in am.
[2021-04-08] MEDS: metFORMIN 500 MG Tab PO SCH (18:32)
[2021-04-08] MEDS: atorvaSTATin 20 MG Tab PO SCH (20:09)
[2021-04-09] MEDS: Piperacillin/Tazobactam 3.375 GM in Sodium Chloride 0.9% 50 ML IV SCH ×2 (00:09→06:23)
[2021-04-09] MEDS: Sodium Chloride 0.9% 10 ML Syringe FLUSH PRN ×2 (00:11→06:26)
[2021-04-09] MEDS: Enoxaparin 40 MG/0.4 ML Syringe SUBCUT SCH (08:41)
[2021-04-09] MEDS: metFORMIN 500 MG Tab PO SCH (08:42)
[2021-04-09] MEDS: Losartan 50 MG Tab PO SCH (08:42)
[2021-04-09] MEDS ORDERED: Amoxicillin/Clavulanate K 875-125 MG Tab PO SCH (09:00)
--- NOTE | 2021-04-09 10:03 | PCM.DCSUM1 ---
Discharge Summary - Hospital Course HPI Initial Comments: 35-year-old male patient with uncontrolled diabetes that came to the ER because of the foot infection. He was seen over a week ago with a left toe infection and put on antibiotics at the walk-in clinic. And then he stepped on a piece of metal couple days ago on the right foot and then also he said it was a blister he went to work yesterday and then came to the ER. Having some chills, fevers and some body aches. He does have little cough but he thinks is from the lisinopril that was recently started. He says for 10 years he has not really been controlling his diabetes and was on Metformin and went off because it caused stomach upset and diarrhea. He was placed on half a dose of what he was on before and is working he was recently placed on Ozempic. Is on Lipitor and lisinopril hydrochlorothiazide for hypertension. The ER doctor called [facility] and they were not able to take him last night. Diagnosis: Stroke: No - Discharge Data Discharge Date: 04/09/21 Discharge Disposition: Home, Self-Care 01 Condition: Good - Referral to Home Health Primary Care Physician: PCP None - Discharge Diagnosis/Problem(s) (1) Cellulitis and abscess of right lower extremity SNOMED Code(s): 921008781 ICD Code: L03.115 - CELLULITIS OF RIGHT LOWER LIMB; L02.415 - CUTANEOUS ABSCESS OF RIGHT LOWER LIMB Status: Acute Current Visit: Yes (2) Diabetes SNOMED Code(s): 99463572 ICD Code: E11.9 - TYPE 2 DIABETES MELLITUS WITHOUT COMPLICATIONS Status: Chronic Current Visit: Yes Qualifiers: Diabetes mellitus type: type 2 (3) GERD (gastroesophageal reflux disease) SNOMED Code(s): 221097024 ICD Code: K21.9 - GASTRO-ESOPHAGEAL REFLUX DISEASE WITHOUT ESOPHAGITIS Status: Chronic Current Visit: No Qualifiers: Esophagitis presence: esophagitis presence not specified Qualified Code(s): K21.9 - Gastro-esophageal reflux disease without esophagitis (4) HTN (hypertension) SNOMED Code(s): 71806908 ICD Code: I10 - ESSENTIAL (PRIMARY) HYPERTENSION Status: Chronic Current Visit: No (5) Noncompliance with medication regimen SNOMED Code(s): 164078075 ICD Code: Z91.14 - PATIENT'S OTHER NONCOMPLIANCE WITH MEDICATION REGIMEN Status: Chronic Current Visit: No - Patient Summary/Data Consults: Consultations 04/05/21 07:00 Consult to Physician [CONS] Routine Consulting Provider: Marcial Murry Call Completed to Consulting Physician: Yes Reason for Consult: foot infection Person Notified: Dr. Murry this am via [employer] Date Notified: 04/05/21 Time Notified: 07:00 Hospital Course: WBC was 13.5 on admission down to 8.3 on 04/06 and 8.8 today. He remained afebrile during hospital stay. Blood cultures had no growth at 4 days. He was started on Vancomycin and Zosyn for right foot cellulitis. Vancomycin trough was 20.2 on 04/06, pharmacy adjusted dose. Dr Murry was consulted and ordered MRI showed no evidence of osteomyelitis or septic arthritis, developing abscess but no well formed, drainable fluid collection. Dr Murry debrided some tissue on 04/06, Wound cultures came back as staph, sensitive to Zosyn, Vancomycin was discontinued before next trough was due. Creatinine was 1.6 when admitted and trended to 1.4, then back up to 1.5 on 04/08 and then down to 1.3 today. Blood sugars were between 125-190s during hospital stay, was on Metformin 500 mg XR Bid and change back to home IR form on 04/08. His Ozempic is due tomorrow so did no receive any doses during hospital stay. He had dry cough with Lisinopril so he was changed off Lisinopril-HCTZ to Losartan 50 mg daily on 04/06 and blood pressures were between 120-140s/80-90s range since then. Dr Murry recommended follow up with podiatry as outpatient once discharged. Changed to Augmentin 875/125 mg po bid 04/09, tolerated dose and discharged home. - Patient Instructions Diet: Diabetic Diet Activity: As Tolerated Driving: Do Not Drive Showering/Bathing: May Shower Wound/Incision Care: Change Dressing Daily Notify Provider of: Fever, Increased Pain, Swelling and Redness, Drainage, Nausea and/or Vomiting Other/Special Instructions: Follow up with Dr Chinchilla in 1 week to recheck foot, referral podiatry. Amoxicillin/clavulanate 1 tab twice a day until finished. N o prolonged standing until off antibiotics. - Discharge Plan *PRESCRIPTION DRUG MONITORING PROGRAM REVIEWED*: Not Applicable *COPY OF PRESCRIPTION DRUG MONITORING REPORT IN PATIENT LISA: Not Applicable Prescriptions/Med Rec: Amoxicillin/Clavulanate K [Augmentin 875-125 MG] 1 tab PO BID #11 tablet Losartan [Cozaar] 50 mg PO DAILY #30 tablet Home Medications: Home Meds Semaglutide [Ozempic] 0.25 mg SQ KRAUS 04/04/21 [History] atorvaSTATin Calcium [Lipitor] 20 mg PO BEDTIME 04/04/21 [History] metFORMIN [Glucophage] 500 mg PO BIDMEALS 04/05/21 [History] Amoxicillin/Clavulanate K [Augmentin 875-125 MG] 1 tab PO BID #11 tablet 04/09/21 [Rx] Losartan [Cozaar] 50 mg PO DAILY #30 tablet 04/09/21 [Rx] Oxygen Therapy Mode: Room Air Patient Handouts: Diabetes Mellitus and Foot Care, Losartan Tablets, Cellulitis, Adult, [id number], Fall Prevention in Hospitals, Adult, Venous Thromboembolism Prevention Forms: ED Department Discharge Referrals: Toby Chinchilla MD [Physician] - - Discharge Summary/Plan Comment DC Time >30 min.: Yes Total # of Minutes for Discharge Time: 30 min - General Info Date of Service: 04/09/21 Subjective Update: Denies any pain in his foot, erythema improved with decreased swelling of right foot. No fevers or chills. Loose stools but not bothering him. Tolerating diet. - Patient Data Vitals - Most Recent: Last Vital Signs Temp 97.5 F 04/09/21 08:00 Pulse 99 04/09/21 08:00 Resp 18 04/09/21 08:00 BP 151/96 H 04/09/21 08:42 Pulse Ox 97 04/09/21 08:00 Weight - Most Recent: 305 lb 7 oz I&O - Last 24 hours: Intake & Output 04/08/21 04/09/21 04/09/21 22:59 06:59 14:59 Intake Total 150 Balance 150 Lab Results - Last 24 hrs: Laboratory Results - last 24 hr 04/08/21 04/08/21 04/08/21 Range/Units 11:32 18:09 20:13 WBC (3.2-10.1) x10-3/uL RBC (3.90-5.90) x10(6)uL Hgb (12.9-17.7) g/dL Hct (38.3-50.1) % MCV (80.8-98.7) fL MCH (27.0-33.3) pg MCHC (28.7-35.3) g/dL RDW (12.4-15.0) % Plt Count (117-477) x10(3)uL MPV (6.7-11.0) fL Neut % (Auto) (40.3-71.8) % Lymph % (Auto) (15.8-45.3) % Gordon % (Auto) (5.5-15.2) % Eos % (Auto) (0.1-6.8) % Baso % (Auto) (0.3-3.8) % Neut # (Auto) (1.7-6.9) x10-3/uL Lymph # (Auto) (0.5-4.5) x10-3/uL Gordon # (Auto) (0.0-1.2) x10-3/uL Eos # (Auto) (0.0-0.6) x10-3/uL Baso # (Auto) (0.0-0.3) x10-3/uL Sodium (135-145) mmol/L Potassium (3.5-5.3) mmol/L Chloride (100-110) mmol/L Carbon Dioxide (21-32) mmol/L BUN (7-18) mg/dL Creatinine (0.70-1.30) mg/dL Est Cr Clr Drug Dosing mL/min Estimated GFR (MDRD) (>60) BUN/Creatinine Ratio (9-20) Glucose (80-116) mg/dL POC Glucose 159 H 125 H 193 H (80-116) mg/dL Calcium (8.6-10.2) mg/dL 04/09/21 04/09/21 Range/Units 06:40 06:40 WBC 8.8 (3.2-10.1) x10-3/uL RBC 4.76 (3.90-5.90) x10(6)uL Hgb 13.9 (12.9-17.7) g/dL Hct 40.6 (38.3-50.1) % MCV 85.4 (80.8-98.7) fL MCH 29.1 (27.0-33.3) pg MCHC 34.1 (28.7-35.3) g/dL RDW 13.2 (12.4-15.0) % Plt Count 284 (117-477) x10(3)uL MPV 7.8 (6.7-11.0) fL Neut % (Auto) 61.6 (40.3-71.8) % Lymph % (Auto) 24.8 (15.8-45.3) % Gordon % (Auto) 9.4 (5.5-15.2) % Eos % (Auto) 3.0 (0.1-6.8) % Baso % (Auto) 1.2 (0.3-3.8) % Neut # (Auto) 5.5 (1.7-6.9) x10-3/uL Lymph # (Auto) 2.2 (0.5-4.5) x10-3/uL Gordon # (Auto) 0.8 (0.0-1.2) x10-3/uL Eos # (Auto) 0.3 (0.0-0.6) x10-3/uL Baso # (Auto) 0.1 (0.0-0.3) x10-3/uL Sodium 138 (135-145) mmol/L Potassium 4.1 (3.5-5.3) mmol/L Chloride 104 (100-110) mmol/L Carbon Dioxide 28 (21-32) mmol/L BUN 17 (7-18) mg/dL Creatinine 1.3 (0.70-1.30) mg/dL Est Cr Clr Drug Dosing 96.44 mL/min Estimated GFR (MDRD) > 60 (>60) BUN/Creatinine Ratio 13.1 (9-20) Glucose 172 H (80-116) mg/dL POC Glucose (80-116) mg/dL Calcium 8.8 (8.6-10.2) mg/dL MARY ELLEN Results - Last 24 hrs: Microbiology 04/04/21 21:12 Aerobic Blood Culture - Preliminary Blood - Venous - Lab Draw NO GROWTH AFTER 4 DAYS Anaerobic Blood Culture - Preliminary NO GROWTH AFTER 4 DAYS 04/04/21 21:07 Aerobic Blood Culture - Preliminary Blood - Venous NO GROWTH AFTER 4 DAYS Anaerobic Blood Culture - Preliminary NO GROWTH AFTER 4 DAYS Med Orders - Current: Current Medications Amoxicillin/Clavulanate Potassium (Amoxicillin/Clavulanate K 875-125 Mg Tab) 1 tab PO BID [facility] Last Admin: 04/09/21 08:45 Dose: 1 tab Documented by: Atorvastatin Calcium (Atorvastatin 20 Mg Tab) 20 mg PO BEDTIME [facility] Last Admin: 04/08/21 20:09 Dose: 20 mg Documented by: Enoxaparin Sodium (Enoxaparin 40 Mg/0.4 Ml Syringe) 40 mg SUBCUT Q24H [facility] Last Admin: 04/09/21 08:41 Dose: Not Given Documented by: Losartan Potassium (Losartan 50 Mg Tab) 50 mg PO DAILY [facility] Last Admin: 04/09/21 08:42 Dose: 50 mg Documented by: Metformin HCl (Metformin 500 Mg Tab) 500 mg PO BIDMEALS [facility] Last Admin: 04/09/21 08:42 Dose: 500 mg Documented by: Non-Formulary Medication (Semaglutide [Ozempic]) 0.25 mg SQ KRAUS [facility] Discontinued Medications Gadoteridol (Gadoteridol 279.3 Mg/Ml 20 Ml Sdv) 20 ml IV . DIRECTED ONE Stop: 04/05/21 15:03 Last Admin: 04/05/21 15:23 Dose: 20 ml Documented by: Hydrochlorothiazide (Hydrochlorothiazide 25 Mg Tab) 25 mg PO BEDTIME [facility] Last Admin: 04/05/21 21:12 Dose: 25 mg Documented by: Piperacillin Sod/Tazobactam (Sod 3.375 gm/ Sodium Chloride) 50 mls @ 100 mls/hr IV Q6H [facility] Last Admin: 04/05/21 04:54 Dose: 100 mls/hr Documented by: Vancomycin HCl 2 gm/ Premix 400 mls @ 200 mls/hr IV STAT ONE Stop: 04/05/21 00:29 Last Admin: 04/04/21 22:43 Dose: 200 mls/hr Documented by: Sodium Chloride (Normal Saline) 1,000 mls @ 150 mls/hr IV ASDIRECTED [facility] Last Admin: 04/05/21 08:40 Dose: 150 mls/hr Documented by: Vancomycin HCl 2 gm/ Premix 400 mls @ 200 mls/hr IV Q12H [facility] Last Admin: 04/05/21 21:19 Dose: 200 mls/hr Documented by: Piperacillin Sod/Tazobactam (Sod 3.375 gm/ Sodium Chloride) 50 mls @ 100 mls/hr IV Q6H [facility] Last Admin: 04/05/21 13:04 Dose: Not Given Documented by: Piperacillin Sod/Tazobactam (Sod 3.375 gm/ Sodium Chloride) 50 mls @ 100 mls/hr IV Q6H [facility] Last Admin: 04/09/21 06:23 Dose: 100 mls/hr Documented by: Vancomycin HCl (Vancomycin 1.5 Gm/300 Ml) 300 mls @ 200 mls/hr IV Q12H [facility] Last Admin: 04/08/21 02:20 Dose: Not Given Documented by: Vancomycin HCl 1.25 gm/ Premix 250 mls @ 166.667 mls/hr IV Q12H [facility] Last Admin: 04/07/21 22:04 Dose: 166.667 mls/hr Documented by: Lisinopril (Lisinopril 20 Mg Tab) 20 mg PO BEDTIME [facility] Last Admin: 04/05/21 21:13 Dose: 20 mg Documented by: Metformin HCl (Metformin 500 Mg Tab) 500 mg PO BIDMEALS [facility] Last Admin: 04/05/21 08:55 Dose: 500 mg Documented by: Metformin HCl (Metformin 500 Mg Tab.Er) 500 mg PO BIDMEALS [facility] Last Admin: 04/08/21 09:22 Dose: 500 mg Documented by: Sodium Chloride (Sodium Chloride 0.9% 10 Ml Syringe) 10 ml FLUSH ASDIRECTED PRN PRN Reason: saline lock flush Last Admin: 04/09/21 06:26 Dose: 10 ml Documented by: - Exam General: Reports: Alert, Oriented, Cooperative, No Acute Distress Lungs: Reports: Clear to Auscultation, Normal Respiratory Effort Cardiovascular: Reports: Regular Rate, Regular Rhythm GI/Abdominal Exam: Normal Bowel Sounds, Soft, Non-Tender, No Distention Extremities: No Pedal Edema Wound/Incisions: Reports: Drainage (minimal), Erythema Improving (50% improvement from yesterday, warmth decreased)
[2021-04-10] MEDS ORDERED: Non-Formulary Medication 1 Each (Semaglutide [Ozempic] 1 MG/0.75 ML Pen.Injctr) SQ SCH (23:34)
== END 2021-04-09 08:53 | disposition home or self-care (01) | DRG 603 ==
LOC: FB.ED 20:28 → FB.MS 23:55 → OBSVTOIN 04-06 17:26
PROVIDERS: ADMIT Student in an Organized Health Care Education/Training Program; ATTEND Family Medicine
DX: L03.115 Cellulitis of right lower limb (principal); L02.415 Cutaneous abscess of right lower limb; E11.9 Type 2 diabetes mellitus without complications; K21.9 Gastro-esophageal reflux disease without esophagitis; I10 Essential (primary) hypertension; Z91.14 Patient's other noncompliance with medication regimen; R05.8 Other specified cough; T46.4X5A Adverse effect of angiotensin-converting-enzyme inhibitors, initial encounter; Z79.899 Other long term (current) drug therapy; Z79.84 Long term (current) use of oral hypoglycemic drugs; Z88.1 Allergy status to other antibiotic agents; Z91.012 Allergy to eggs; E78.00 Pure hypercholesterolemia, unspecified; Z86.16 Personal history of COVID-19; Z86.19 Personal history of other infectious and parasitic diseases; Z98.890 Other specified postprocedural states; B95.61 Methicillin susceptible Staphylococcus aureus infection as the cause of diseases classified elsewhere
CPT/HCPCS: 36415; 70030-RT; 73720-RT; 80048; 80053; 80202; 82947; 83605; 85025; 87040; 87070; 87077; 87186; 87205; A9270-GY; A9579; J1650; J2543; J3370; J7030